=== PATIENT | female | born 1940 | race Caucasian/White ===

== ENCOUNTER → 2024-10-02 | Outpatient (CLI) | payer MEDICARE, MEDICAID, SELFPAY ==
[2024-10-02 13:33] LABS: Basophils % (Auto) 0 % (0-2.5); Eosinophils # (Auto) 0.1 Thou/mm3 (0.0-0.5); Eosinophils % (Auto) 1 % (0-10); Hematocrit 35.5 % (36.0-46.0); Hemoglobin 11.2 g/dL (12.0-16.0); Immature Granulocytes % (Auto) 0 % (0-0); Immature Granulocytes Auto 0.04 Thou/mm3 (0.00-0.00); Lymphocytes # (Auto) 0.9 Thou/mm3 (1.0-4.8); Lymphocytes % (Auto) 9 % (10-50); Mean Corpuscular HGB Conc 31.5 g/dl (31.0-37.0); Mean Corpuscular Hemoglobin 29.6 pg (25.0-35.0); Mean Corpuscular Volume 94 fL (80-100); Monocytes # (Auto) 0.8 Thou/mm3 (0.0-0.8); Monocytes % (Auto) 8 % (0-12); Neutrophils # (Auto) 7.4 Thou/mm3 (1.8-7.7); Neutrophils % (Auto) 81 % (37-80); Nucleated Red Blood Cell % 0 /100 WBC (0); Platelet Count 328 Thou/mm3 (140-440); RDW Standard Deviation 52.8 fL (36.4-46.3); Red Blood Count 3.79 Miln/mm3 (4.00-5.20); White Blood Count 9.1 Thou/mm3 (3.6-11.0)
[2024-10-02 13:46] LABS: Glucose Estimated Average 137 mg/dL (80-131); Hemoglobin A1C 6.4 % Hgb (4.8-6.0)
[2024-10-02 13:50] LABS: Parathyroid Hormone Intact 61.7 pg/ml (18.5-88.0)
[2024-10-02 13:55] LABS: Albumin, Serum 3.8 gm/dL (3.4-4.8); Anion Gap 7 (7-16); BUN/Creatinine Ratio 31 Ratio (12-20); Blood Urea Nitrogen 46 mg/dL (9-23); Calcium 9.4 mg/dL (8.3-10.6); Calcium (Corrected) 9.6 mg/dL (8.5-10.1); Carbon Dioxide 28.9 mMol/L (20.0-31.0); Cardiac Risk Estimate 3.9 RATIO (3.7-5.6); Chloride 104 mMol/L (98-107); Cholesterol 131 mg/dL (132-200); Creatinine (Component) 1.5 mg/dL (0.6-1.3); Free T4 (Free Thyroxine) 0.96 ng/dL (0.89-1.76); Glucose 72 mg/dL (74-106); HDL Cholesterol 34 mg/dL (40-60); LDL Cholesterol,Calculated 76 mg/dL (0-130); Osmolality,Calculated 290 (275-295); Phosphorous 4.4 mg/dL (2.4-5.1); Potassium 4.7 mMol/L (3.4-5.1); Sodium 140 mMol/L (136-145); Thyroid Stimulating Hormone 1.65 uIU/mL (0.55-4.78); Triglycerides 104 mg/dL (30-150); eGFR 34 See Note
[2024-10-02 14:09] LABS: Collection Type, Urine Clean Catch
[2024-10-02 14:22] LABS: Bilirubin,Urine Negative (Negative); Blood,Urine Negative (Negative); Clarity,Urine Clear (Clear/Hazy); Color,Urine Lt-Yellow (Lt Yel-Yel); Glucose, Urine Negative (Negative); Ketones,Urine Negative (Negative); Leukocyte Esterase,Urine Positive (Negative); Nitrite,Urine Negative (Negative); Protein,Urine Trace (Neg - Trace); RBC,Urine 4 /hpf (0-3); Specific Gravity,Urine 1.017 (1.001-1.035); Squamous Epithelial Cell,Urine 7 /hpf (0-5); Urobilinogen,Urine Negative mg/dL (0.0-1.0); WBC,Urine 11 /hpf (0-5)
[2024-10-02 14:24] LABS: Culture Indicated,Urine Yes
== END | disposition home or self-care (01) ==
PROVIDERS: PCP Internal Medicine; Referring Provider Internal Medicine Cardiovascular Disease; Visit Provider Internal Medicine
DX: I12.9 Hypertensive chronic kidney disease with stage 1 through stage 4 chronic kidney disease, or unspecified chronic kidney disease (principal); E11.22 Type 2 diabetes mellitus with diabetic chronic kidney disease; N18.30 Chronic kidney disease, stage 3 unspecified; E78.5 Hyperlipidemia, unspecified; E11.65 Type 2 diabetes mellitus with hyperglycemia; I35.0 Nonrheumatic aortic (valve) stenosis
CPT/HCPCS: 36415; 80061; 80069; 81001; 83036; 83970; 84439; 84443; 85025; 87077; 87086; 87186

== ENCOUNTER → 2024-10-13 | Outpatient (CLI) | payer MEDICARE, MEDICAID, SELFPAY ==
--- NOTE | 2024-10-13 15:21 | XR_ITS ---
Examination: Arterial duplex lower extremity study, unilateral left Date and time of exam: October 13, 2024 1604 hrs. Nonhealing wounds and pain in the left lower leg beginning 7 years ago Findings: Duplex sonographic imaging of the lower extremity arteries using B-mode/Mitchell scale imaging and Doppler spectral analysis and color flow. Left common femoral artery demonstrates triphasic flow. Left superficial femoral artery demonstrates monophasic flow. Left popliteal artery demonstrates monophasic flow. Left posterior tibial artery demonstrated no flow. 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
== END | disposition home or self-care (01) ==
PROVIDERS: PCP Internal Medicine; Referring Provider Internal Medicine; Visit Provider Internal Medicine
DX: I77.89 Other specified disorders of arteries and arterioles (principal); M71.22 Synovial cyst of popliteal space [Baker], left knee
CPT/HCPCS: 93926

== ENCOUNTER → 2024-10-17 | Outpatient (CLI) | payer MEDICARE, MEDICAID, SELFPAY ==
--- NOTE | 2024-10-17 16:00 | XR_ITS ---
Examination: Duplex scan of the lower extremity, unilateral left complete Date and time of exam: October 17, 2024 1557 hrs. Indications: Nonhealing wounds left lower leg 7 months Technique: Duplex scan of the extremity veins using B-mode/grayscale imaging and Doppler spectral analysis and color flow Attention is directed to internal echogenicity, compression and augmentation involving these veins, color flow assessment, spectral analysis Findings: Major deep venous structures in the extremity demonstrate normal course and caliber. No diagnostic visualization left posterior tibial vein There is no evidence of deep vein thrombosis. Normal color flow and spectral analysis Impression: Limited study No DVT demonstrated
== END | disposition home or self-care (01) ==
PROVIDERS: PCP Internal Medicine; Referring Provider Internal Medicine; Visit Provider Internal Medicine
DX: I73.9 Peripheral vascular disease, unspecified (principal)
CPT/HCPCS: 93971

== ENCOUNTER 2024-11-16 10:34 | Emergency (ER) | payer MEDICARE, MEDICAID, SELFPAY ==
[2024-11-16 10:35] VITALS: BP 154/63; PULSE 60; RESP 19; TEMP 36.4; O2SAT 100
[2024-11-16 10:39] VITALS: PULSE 72; RESP 20; O2SAT 95
[2024-11-16 10:46] VITALS: PULSE 65; BMI 34.7
[2024-11-16 11:20] VITALS: BP 135/92; PULSE 67; RESP 18; TEMP 36.5; O2SAT 98
--- NOTE | 2024-11-16 11:44 | PD.EDADULT ---
ED General RME/HPI General Chief complaint: Altered Mental Status Stated complaint: AMS/LOW BLOOD SUGAR Time Seen by Provider: 11/16/24 11:25 Arrival date/time: 11/16/24 10:34 CC: Hypoglycemia HPI patient presents to the ER via EMS who were called by family members who were not able to wake the patient [place]. The patient is a diabetic took insulin at midnight as she typically does. Patient admits that when EMS arrived she was able to be awoken without complications and reported blood sugar at the time was 112. Patient denies fever chills chest pain shortness of breath or difficulty breathing no other complaints. Patient is hard of hearing. Related Data Home Medications ?Medication ?Instructions ?Recorded ?Confirmed multivitamin 1 tab PO QDAY 02/11/18 04/13/24 atorvastatin 40 mg tablet 40 mg PO HS 11/28/19 04/13/24 apixaban 2.5 mg tablet (Eliquis) 2.5 mg PO BID 01/29/22 04/13/24 sitagliptin phosphate 100 mg 100 mg PO QDAY 01/31/22 04/13/24 tablet (Januvia) ferrous sulfate 325 mg (65 mg 325 mg PO QDAY 01/18/23 04/13/24 iron) tablet Preservision Areds See Rx Instructions .Route .COMPLEX 04/13/24 04/13/24 insulin glargine 100 24 unit subcut QAM 04/13/24 04/13/24 unit-lixisenatide 33 mcg/mL subcutaneous pen (Soliqua 100/33) linaclotide 145 mcg capsule 145 mcg PO QDAY 04/13/24 04/13/24 (Linzess) Previous Rx's ?Medication ?Instructions ?Recorded amoxicillin 500 mg-potassium 1 tab PO BID #14 tabs 04/15/24 clavulanate 125 mg tablet (Augmentin) calcitriol 0.25 mcg capsule 0.5 mcg (2 x 0.25 mcg) PO QDAY #1 04/15/24 cap Allergies Allergy/AdvReac Type Severity Reaction Status Date / Time adhesive tape Allergy Blister Verified 04/12/24 14:36 Review of Systems Review of Systems Narrative Review of Systems: GEN: No fever, no chills, no weight loss EYES: No discharge, no visual changes, no pain HEENT: No ear pain, no congestion, no sore throat PULM: No shortness of breath, no cough, no congestion CV: No chest pain, no dyspnea on exertion, no palpitations GI: No nausea, no vomiting, no diarrhea, no pain, no constipation : No frequency, no urgency, no dysuria MUSC/SKEL: No joint pain, no back pain SKIN: No rash PSYCH: No hallucinations, no depression HEME/LYMPH: No easy bleeding or bruising tendencies NEURO: No weakness, no headache Past Medical History Past Medical History NEUROLOGIC: Positive Peripheral Neuropathy; Negative Neurological Disorders or Seizures CARDIAC: Positive Cardiac Disorders, Coronary Artery Disease, Atherosclerotic Heart Disease, Peripheral Vascular Disease, Hypercholesterolemia, Edema, Cellulitis, Deep Vein Thrombosis and Hypertension; Negative Congestive Heart Failure or Varicose Veins RESPIRATORY: Positive Pulmonary Embolism and Pulmonary Edema; Negative Chronic Obstructive Pulmonary Disease (COPD) or Asthma GASTROINTESTINAL: Positive Gastrointestinal Disorders, Gall Bladder Disease and Obesity; Negative Hepatitis GENITOURINARY: Negative Genitourinary Disorders or Renal Disease REPRODUCTIVE: Negative Previous Pregnancies MUSCULOSKELETAL: Positive Musculoskeletal Disorders, Arthritis and Fractures ENT: Positive Cataracts, Macular Degeneration and Deafness; Negative Glaucoma, Retinal Detachment, Ear Infection or Eye Prosthesis ENDOCRINE: Positive Endocrine Disorders and Diabetes Mellitus Type 2; Negative Diabetes Mellitus Type 1 HEMATOLOGIC: Positive Blood Disorders, Anemia and Clotting Problems; Negative Sickle Cell Disease OTHER HISTORY: Positive Hospitalization, Falls, Chicken Pox, Measles, Mumps and Cancer; Negative Autoimmune Disease, Down Syndrome, Developmental Delay, Shingles, Blood Transfusions, Blood Transfusion Reaction, Anesthesia Reactions, Organ Transplant, Chemotherapy, Radiation Therapy, Hyperbaric Therapy or MRSA Family History FAMILY HISTORY: Positive Family Cardiac Disorders, Family Cancer and Family Surgery; Negative Family Psychiatric Problems, Family Respiratory Disorders, Family Gastrointestinal Problems or Family Anesthesia Reaction Surgical History SURGICAL: Positive Angiogram, Ear Surgery, Abdominal Surgery and Hysterectomy; Negative Cardiac Surgery, Endocrine Surgery, Thyroidectomy, Joint Replacement or Organ Transplant Social History SMOKING STATUS: Never smoker SECOND HAND EXPOSURE: No ED Exam Narrative Physical exam: [General: Obese not in any acute distress Head normocephalic HEENT: Within acceptable limits Neck is supple nontender Chest equal chest rise nontender to palpation Respiratory: Clear to auscultation no wheezes crackles or rubs CV: Rate rhythm is regular no murmurs rubs or clicks Abdomen is distended secondary to body habitus soft nontender no masses positive bowel sounds all 4 quadrants Back: No CVA tenderness no spinous process tenderness from cervical spine thoracic and lumbar spine Skin: Intact no petechiae rash induration ulceration or crepitus Extremities: Moving all extremity against resistance cap refill less than 2 seconds neurosensory intact Neuro: Awake alert oriented x3 Glascow coma 15 no focal deficits] Course Quality Measures none Orders Category Date Time Status Glucose [Bedside Blood Glucose] Q1HR Care 11/16/24 11:46 Active Miscellaneous Nursing Order NOW Care 11/16/24 11:46 Active CBC Stat Lab 11/16/24 11:00 Completed CMP [Comprehensive Metabolic Panel] Stat Lab 11/16/24 12:29 Completed Urinalysis Stat Lab 11/16/24 11:24 Completed Vital Signs Vital signs: Vital Signs Temperature 97.5 F 11/16/24 10:35 Pulse Rate 60 11/16/24 10:35 Respiratory Rate 19 11/16/24 10:35 Blood Pressure 154/63 H 11/16/24 10:35 Pulse Oximetry (%) 100 11/16/24 10:35 Oxygen Delivery Method Nasal Cannula 11/16/24 10:35 Oxygen Flow Rate 6 11/16/24 10:35 MDM Patient data External records reviewed:: [facility] previous records and EMS form Clinical information provided by:: patient and EMS Social determinants that could affect healthcare access:: none Patient has the following chronic illnesses:: Diabetes, DVT, CKD stage IIIb, hypertension, hyperlipidemia, chronic venous stasis ulcer. How is presenting disease/condition affected by chronic disease/condition?: exacerbated by Evaluation data The following diagnostics were reviewed and interpreted by me:: lab results Lab and/or radiology exams considered but not ordered:: CBC shows no acute leukocytosis anemia thrombocytopenia CMP shows no acute electrolyte imbalances renal impairment transaminitis or T. bili ovation Urine is negative. Interpretation Summary: Hypoglycemic episode seems to have resolved, at this time comfortable discharging the patient home she has been awake alert and oriented throughout her visit the emergency room there is been no deterioration in neurologic status. Medications Medications considered but not ordered:: None Medication administrations:: None Consultations Consultation(s) initiated? (list below): No Diagnosis Differential Diagnosis ED Complaint MDM: Hypoglycemia electrolyte imbalances UTI Most likely diagnosis given after review of the tests above:: Hypoglycemia Admission Indicated Admission indicated?: not indicated Explain why admission is indicated or not indicated:: Stable for outpatient follow-up Admission Request Was there a request for admission?: No Disposition Plan Disposition Plan: Discharge Discharge Attestation Discharge Attestation: The patient and all family members were given an opportunity to ask questions and understood the discharge instructions. Discharge instructions specifically effects, indications for sooner follow up or return to the emergency department, and the expected course of current diagnosis. Patient condition: Stable Medical Decision Making Differential Diagnosis Differential Diagnosis: Hypoglycemia electrolyte imbalances UTI Lab Data 11/16/24 11:00 11/16/24 12:29 Labs: Lab Results 11/16/24 11/16/24 11/16/24 Range/Units 11:00 11:24 12:29 WBC 9.4 (3.6-11.0) Thou/mm3 RBC 3.94 L (4.00-5.20) Miln/mm3 Hgb 11.1 L (12.0-16.0) g/dL Hct 35.5 L (36.0-46.0) % MCV 90 (80-100) fL MCH 28.2 (25.0-35.0) pg MCHC 31.3 (31.0-37.0) g/dl RDW Std Deviation 52.6 H (36.4-46.3) fL Plt Count 240 (140-440) Thou/mm3 Neut % (Auto) 87 H (37-80) % Lymph % (Auto) 6 L (10-50) % [place] % (Auto) 6 (0-12) % Eos % (Auto) 1 (0-10) % Baso % (Auto) 1 (0-2.5) % Neut # (Auto) 8.1 H (1.8-7.7) Thou/mm3 Lymph # (Auto) 0.5 L (1.0-4.8) Thou/mm3 [place] # (Auto) 0.6 (0.0-0.8) Thou/mm3 Eos # (Auto) 0.1 (0.0-0.5) Thou/mm3 Baso # (Auto) 0.1 (0.0-0.2) Thou/mm3 Immature Gran # (Auto) 0.03 H (0.00-0.00) Thou/mm3 Absolute Nucleated RBC 0.00 (0.00-0.00) Thou/mm3 Immature Gran % 0 (0-0) % Nucleated RBC % 0 (0) /100 WBC Sodium 137 (136-145) mMol/L Potassium 4.0 (3.4-5.1) mMol/L Chloride 100 (98-107) mMol/L Carbon Dioxide 31.0 (20.0-31.0) mMol/L Anion Gap 6 L (7-16) BUN 39 H (9-23) mg/dL Creatinine 1.3 (0.6-1.3) mg/dL Estim Creat Clear Calc 31.6 L (>60) mL/min eGFR 40 L (60 - ) See Note BUN/Creatinine Ratio 30 H (12-20) Ratio Glucose 97 (74-106) mg/dL Calculated Osmolality 283 (275-295) Calcium 9.5 (8.3-10.6) mg/dL Corrected Calcium 9.7 (8.5-10.1) mg/dL Total Bilirubin 0.5 (0.3-1.2) mg/dL AST 33 (0-34) U/L ALT 23 (10-49) U/L Alkaline Phosphatase 174 H (46-116) U/L Total Protein 7.6 (5.7-8.2) gm/dL Albumin 3.8 (3.4-4.8) gm/dL Globulin 3.8 H (2.3-3.5) gm/dL Albumin/Globulin Ratio 1.0 L (1.2-2.2) Ur Collection Type Clean Catch Urine Color Lt-Yellow (Lt Yel-Yel) Urine Clarity Clear (Clear/Hazy) Urine pH 6.5 (5.0-7.0) Ur Specific [place] 1.007 (1.001-1.035) Urine Protein Negative (Neg - Trace) Urine Glucose (UA) Negative (Negative) Urine Ketones Negative (Negative) Urine Blood Negative (Negative) Urine Nitrite Negative (Negative) Urine Bilirubin Negative (Negative) Urine Urobilinogen (Auto) Negative (0.0-1.0) mg/dL Ur Leukocyte Esterase Negative (Negative) Urine RBC 0 (0-3) /hpf Urine WBC 0 (0-5) /hpf Ur Squamous Epith Cells 0 (0-5) /hpf Urine Bacteria None (None) Discharge Plan Plan Patient Disposition: HOME (Self Care) Patient condition on transfer: Stable Prescriptions/Referrals Prescriptions/Med Rec: No Action ferrous sulfate 325 mg (65 mg iron) tablet 325 mg PO QDAY Eliquis 2.5 mg tablet 2.5 mg PO BID Januvia 100 mg tablet 100 mg PO QDAY multivitamin Tablet 1 tab PO QDAY atorvastatin 40 mg Tablet 40 mg PO HS Soliqua 100/33 100 unit-33 mcg/mL Insulin Pen 24 unit SUBCUT QAM Linzess 145 mcg Capsule 145 mcg PO QDAY Preservision Areds tablet See Rx Instructions .ROUTE .COMPLEX Rx Instructions: 7160 [id number] unit tablet, Take 1 tablet by mouth daily calcitriol 0.25 mcg Capsule 0.5 mcg PO QDAY Qty: 1 0RF amoxicillin-pot clavulanate [Augmentin] 500-125 mg tablet 1 tab PO BID Qty: 14 0RF Referrals: Samira Rojas MD [Primary Care Provider] - In 1 week Problem List Clinical Impression: Hypoglycemia Patient/Caregiver Discharge Instructions Education Materials: Hypoglycemia (Low Blood Sugar) Additional Instructions: Monitor your blood sugars closely, if you are giving insulin at midnight make sure you take some food after you take the insulin. 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
[2024-11-16 12:21] LABS: Basophils # (Auto) 0.1 Thou/mm3 (0.0-0.2); Basophils % (Auto) 1 % (0-2.5); Eosinophils # (Auto) 0.1 Thou/mm3 (0.0-0.5); Eosinophils % (Auto) 1 % (0-10); Hematocrit 35.5 % (36.0-46.0); Hemoglobin 11.1 g/dL (12.0-16.0); Immature Granulocytes % (Auto) 0 % (0-0); Immature Granulocytes Auto 0.03 Thou/mm3 (0.00-0.00); Lymphocytes # (Auto) 0.5 Thou/mm3 (1.0-4.8); Lymphocytes % (Auto) 6 % (10-50); Mean Corpuscular HGB Conc 31.3 g/dl (31.0-37.0); Mean Corpuscular Hemoglobin 28.2 pg (25.0-35.0); Mean Corpuscular Volume 90 fL (80-100); Monocytes # (Auto) 0.6 Thou/mm3 (0.0-0.8); Monocytes % (Auto) 6 % (0-12); Neutrophils # (Auto) 8.1 Thou/mm3 (1.8-7.7); Neutrophils % (Auto) 87 % (37-80); Nucleated Red Blood Cell % 0 /100 WBC (0); Platelet Count 240 Thou/mm3 (140-440); RDW Standard Deviation 52.6 fL (36.4-46.3); Red Blood Count 3.94 Miln/mm3 (4.00-5.20); White Blood Count 9.4 Thou/mm3 (3.6-11.0)
[2024-11-16 12:33] LABS: Collection Type, Urine Clean Catch; RBC,Urine 0 /hpf (0-3); Squamous Epithelial Cell,Urine 0 /hpf (0-5); WBC,Urine 0 /hpf (0-5)
[2024-11-16 12:54] VITALS: BP 149/89; PULSE 59; RESP 18; TEMP 36.5; O2SAT 97
[2024-11-16 12:55] LABS: Alanine Aminotransferase 23 U/L (10-49); Albumin, Serum 3.8 gm/dL (3.4-4.8); Alkaline Phosphatase 174 U/L (46-116); Anion Gap 6 (7-16); Aspartate Amino Transferase 33 U/L (0-34); BUN/Creatinine Ratio 30 Ratio (12-20); Bilirubin,Total 0.5 mg/dL (0.3-1.2); Blood Urea Nitrogen 39 mg/dL (9-23); Calcium 9.5 mg/dL (8.3-10.6); Calcium (Corrected) 9.7 mg/dL (8.5-10.1); Chloride 100 mMol/L (98-107); Creatinine (Component) 1.3 mg/dL (0.6-1.3); Estimated Creatinine Clearance 31.6 mL/min (>60); Globulin 3.8 gm/dL (2.3-3.5); Glucose 97 mg/dL (74-106); Osmolality,Calculated 283 (275-295); Sodium 137 mMol/L (136-145); Total Protein 7.6 gm/dL (5.7-8.2); eGFR 40 See Note
[2024-11-16 12:56] LABS: Bilirubin,Urine Negative (Negative); Blood,Urine Negative (Negative); Clarity,Urine Clear (Clear/Hazy); Glucose, Urine Negative (Negative); Ketones,Urine Negative (Negative); Leukocyte Esterase,Urine Negative (Negative); Nitrite,Urine Negative (Negative); PH,Urine 6.5 (5.0-7.0); Protein,Urine Negative (Neg - Trace); Specific Gravity,Urine 1.007 (1.001-1.035); Urobilinogen,Urine Negative mg/dL (0.0-1.0)
[2024-11-16 13:09] LABS: Color,Urine Lt-Yellow (Lt Yel-Yel)
--- NOTE | 2024-11-16 13:52 | PC.NURSE ---
PT GIVEN TURKEY SANDWICH & CRANBERRY JUICE, PER PROVIDER'S ORDER. PT ATE 100% OF TURKEY SANDWICH AND DRANK ALL OF APPLE JUICE.
[2024-11-16 14:33] VITALS: BP 141/52; PULSE 94; RESP 19; TEMP 36.8; O2SAT 99
== END 2024-11-16 14:58 | disposition home or self-care (01) ==
PROVIDERS: Registered Nurse General Practice; Emergency Provider Emergency Medicine; PCP Internal Medicine
DX: E11.649 Type 2 diabetes mellitus with hypoglycemia without coma (principal)
CPT/HCPCS: 51701; 36415; 80053; 81001; 85025; 99283

== ENCOUNTER → 2024-12-10 | Outpatient (CLI) | payer MEDICARE, MEDICAID, SELFPAY | END | disposition home or self-care (01) | LOC: SWHD 13:44 | PROVIDERS: Visit Provider Student in an Organized Health Care Education/Training Program | DX: I87.312 Chronic venous hypertension (idiopathic) with ulcer of left lower extremity (principal); L97.822 Non-pressure chronic ulcer of other part of left lower leg with fat layer exposed; D64.9 Anemia, unspecified; E11.40 Type 2 diabetes mellitus with diabetic neuropathy, unspecified; Z79.4 Long term (current) use of insulin; Z79.84 Long term (current) use of oral hypoglycemic drugs; I82.409 Acute embolism and thrombosis of unspecified deep veins of unspecified lower extremity | CPT/HCPCS: 97597; 97598 ×32; A9270 ==

== ENCOUNTER → 2025-01-01 | Outpatient (CLI) | payer MEDICARE, MEDICAID, SELFPAY ==
[2025-01-01 14:41] LABS: Blood Urea Nitrogen 38 mg/dL (9-23); Creatinine (Component) 1.6 mg/dL (0.6-1.3); eGFR 31 See Note
== END | disposition home or self-care (01) ==
LOC: COPL 13:24
PROVIDERS: PCP Internal Medicine; Referring Provider Surgery Vascular Surgery; Visit Provider Surgery Vascular Surgery
DX: I87.332 Chronic venous hypertension (idiopathic) with ulcer and inflammation of left lower extremity (principal)
CPT/HCPCS: 36415; 82565; 84520

== ENCOUNTER → 2025-01-06 | Outpatient (CLI) | payer MEDICARE, SELFPAY | END | disposition home or self-care (01) | LOC: SWHD 13:47 | PROVIDERS: PCP Internal Medicine; Referring Provider Internal Medicine; Visit Provider Surgery | DX: I87.312 Chronic venous hypertension (idiopathic) with ulcer of left lower extremity (principal); L97.822 Non-pressure chronic ulcer of other part of left lower leg with fat layer exposed; D64.9 Anemia, unspecified; E11.40 Type 2 diabetes mellitus with diabetic neuropathy, unspecified; Z79.4 Long term (current) use of insulin; Z79.84 Long term (current) use of oral hypoglycemic drugs; I82.409 Acute embolism and thrombosis of unspecified deep veins of unspecified lower extremity | CPT/HCPCS: 11042; 11045; A9270 ==

== ENCOUNTER → 2025-01-08 | Outpatient (CLI) | payer MEDICARE, MEDICAID, SELFPAY ==
--- NOTE | 2025-01-08 15:00 | XR_ITS ---
Examination: CTA abdominal aorta iliofemoral runoff. 2-D sagittal coronal reconstructions. 3-D reconstructions, vascular Exam date and time: January 08, 2025 at 1551 hrs. Indications: Nonhealing left leg ulcer 7 years Technique: Multiple CTA images of the abdominal aorta iliofemoral runoff arterial vessels, 2.0 mm slice thickness, post intravenous administration 80 cc [id number] 2-D sagittal coronal reconstructions. 3-D reconstructions, vascular 3-D postprocessing, including vascular maximum intensity projection images, 3-D volume rendering Low dose protocols were performed. One or more of the following dose reduction techniques were used; automated exposure control, adjustment of the mA and/or KV according to patient size, use of iterative reconstruction technique. Findings: No focal liver or splenic lesion Absent gallbladder No pancreatic mass Bilateral renal cortical thinning. No bowel obstruction Intact urinary bladder Abdominal aortic calcification no aneurysmal dilatation 50% stenosis origin celiac axis Transverse dimension distal abdominal aorta 28 mm No critical stenoses common iliac and external iliac or common femoral arteries Heavy calcification right superficial femoral artery left popliteal artery Occlusion proximal right anterior tibial artery, very heavy calcification trifurcation vessels Occlusions proximal right posterior tibial artery Heavy calcification left superficial femoral artery Poor opacification of the left popliteal artery Severe calcification of the left trifurcation arteries, posterior tibial and anterior tibial and main continuation trunk are not opacified in the mid and distal portion Extensive soft tissue calcification left lower extremity Impression: 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
== END | disposition home or self-care (01) ==
PROVIDERS: PCP Surgery Vascular Surgery; Referring Provider Surgery Vascular Surgery; Visit Provider Surgery Vascular Surgery
DX: I87.332 Chronic venous hypertension (idiopathic) with ulcer and inflammation of left lower extremity (principal); I70.242 Atherosclerosis of native arteries of left leg with ulceration of calf
CPT/HCPCS: 75635; A4649; Q9967

== ENCOUNTER → 2025-02-03 | Outpatient (CLI) | payer MEDICARE, SELFPAY | END | disposition home or self-care (01) | LOC: SWHD 13:44 | PROVIDERS: PCP Internal Medicine; Referring Provider Internal Medicine; Visit Provider Student in an Organized Health Care Education/Training Program | DX: I87.312 Chronic venous hypertension (idiopathic) with ulcer of left lower extremity (principal); L97.822 Non-pressure chronic ulcer of other part of left lower leg with fat layer exposed; D64.9 Anemia, unspecified; E11.40 Type 2 diabetes mellitus with diabetic neuropathy, unspecified; Z79.4 Long term (current) use of insulin; Z79.84 Long term (current) use of oral hypoglycemic drugs; I82.409 Acute embolism and thrombosis of unspecified deep veins of unspecified lower extremity | CPT/HCPCS: 11042; 11045 ×3; A9270 ==

== ENCOUNTER → 2025-02-12 | Outpatient (CLI) | payer MEDICARE, MEDICAID, SELFPAY ==
[2025-02-12 13:13] LABS: Collection Type, Urine Clean Catch
[2025-02-12 13:30] LABS: Basophils % (Auto) 1 % (0-2.5); Eosinophils # (Auto) 0.2 Thou/mm3 (0.0-0.5); Eosinophils % (Auto) 2 % (0-10); Hematocrit 31.6 % (36.0-46.0); Hemoglobin 9.9 g/dL (12.0-16.0); Immature Granulocytes % (Auto) 0 % (0-0); Immature Granulocytes Auto 0.02 Thou/mm3 (0.00-0.00); Lymphocytes # (Auto) 1.3 Thou/mm3 (1.0-4.8); Lymphocytes % (Auto) 15 % (10-50); Mean Corpuscular HGB Conc 31.3 g/dl (31.0-37.0); Mean Corpuscular Hemoglobin 28.8 pg (25.0-35.0); Mean Corpuscular Volume 92 fL (80-100); Monocytes # (Auto) 0.5 Thou/mm3 (0.0-0.8); Monocytes % (Auto) 6 % (0-12); Neutrophils # (Auto) 6.6 Thou/mm3 (1.8-7.7); Neutrophils % (Auto) 76 % (37-80); Nucleated Red Blood Cell % 0 /100 WBC (0); Platelet Count 283 Thou/mm3 (140-440); RDW Standard Deviation 53.1 fL (36.4-46.3); Red Blood Count 3.44 Miln/mm3 (4.00-5.20); White Blood Count 8.7 Thou/mm3 (3.6-11.0)
[2025-02-12 13:37] LABS: Glucose Estimated Average 160 mg/dL (80-131); Hemoglobin A1C 7.2 % Hgb (4.8-6.0)
[2025-02-12 13:44] LABS: Parathyroid Hormone Intact 47.4 pg/ml (18.5-88.0)
[2025-02-12 13:52] LABS: Alanine Aminotransferase 14 U/L (10-49); Albumin, Serum 3.9 gm/dL (3.4-4.8); Alkaline Phosphatase 143 U/L (46-116); Anion Gap 9 (7-16); Aspartate Amino Transferase 26 U/L (0-34); BUN/Creatinine Ratio 31 Ratio (12-20); Bilirubin,Total 0.4 mg/dL (0.3-1.2); Blood Urea Nitrogen 49 mg/dL (9-23); Calcium 9.4 mg/dL (8.3-10.6); Calcium (Corrected) 9.5 mg/dL (8.5-10.1); Carbon Dioxide 26.5 mMol/L (20.0-31.0); Cardiac Risk Estimate 3.6 RATIO (3.7-5.6); Chloride 107 mMol/L (98-107); Cholesterol 137 mg/dL (132-200); Creatinine (Component) 1.6 mg/dL (0.6-1.3); Globulin 3.8 gm/dL (2.3-3.5); Glucose 169 mg/dL (74-106); HDL Cholesterol 38 mg/dL (40-60); LDL Cholesterol,Calculated 77 mg/dL (0-130); Osmolality,Calculated 300 (275-295); Potassium 4.1 mMol/L (3.4-5.1); Sodium 142 mMol/L (136-145); Thyroid Stimulating Hormone 1.54 uIU/mL (0.55-4.78); Total Protein 7.7 gm/dL (5.7-8.2); Triglycerides 111 mg/dL (30-150); eGFR 31 See Note
[2025-02-12 14:01] LABS: Bacteria,Urine Rare; Bilirubin,Urine Negative (Negative); Blood,Urine Negative (Negative); Clarity,Urine Clear (Clear/Hazy); Color,Urine Lt-Yellow (Lt Yel-Yel); Creatinine MALB Rnd Ur 64 mg/dL (30-125); Culture Indicated,Urine Not Indicated; Glucose, Urine Negative (Negative); Ketones,Urine Negative (Negative); Leukocyte Esterase,Urine Positive (Negative); Microalbumin Creat Ratio 45 mg/gCrea (<30); Microalbumin, Random Urine 29 mg/L (0-300); Nitrite,Urine Negative (Negative); PH,Urine 5.5 (5.0-7.0); Protein,Urine Negative (Neg - Trace); RBC,Urine 11 /hpf (0-3); Specific Gravity,Urine 1.013 (1.001-1.035); Squamous Epithelial Cell,Urine 1 /hpf (0-5); Urobilinogen,Urine Negative mg/dL (0.0-1.0); WBC,Urine 9 /hpf (0-5)
== END | disposition home or self-care (01) ==
LOC: COPL 12:36
PROVIDERS: PCP Internal Medicine; Referring Provider Internal Medicine; Visit Provider Internal Medicine
DX: I12.9 Hypertensive chronic kidney disease with stage 1 through stage 4 chronic kidney disease, or unspecified chronic kidney disease (principal); E11.22 Type 2 diabetes mellitus with diabetic chronic kidney disease; N18.30 Chronic kidney disease, stage 3 unspecified
CPT/HCPCS: 36415; 80053; 80061; 81001; 82043; 82570; 83036; 83970; 84443; 85025

== ENCOUNTER → 2025-03-03 | Outpatient (CLI) | payer MEDICARE, SELFPAY | END | disposition home or self-care (01) | PROVIDERS: PCP Internal Medicine; Referring Provider Internal Medicine; Visit Provider Student in an Organized Health Care Education/Training Program | DX: L97.822 Non-pressure chronic ulcer of other part of left lower leg with fat layer exposed (principal); D64.9 Anemia, unspecified; E11.40 Type 2 diabetes mellitus with diabetic neuropathy, unspecified; Z79.4 Long term (current) use of insulin; Z79.84 Long term (current) use of oral hypoglycemic drugs; I82.409 Acute embolism and thrombosis of unspecified deep veins of unspecified lower extremity | CPT/HCPCS: 11042; A9270 ==

== ENCOUNTER → 2025-04-02 | Outpatient (CLI) | payer MEDICARE, MEDICAID, SELFPAY ==
--- NOTE | 2025-04-02 13:27 | EKG_ITS ---
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
[2025-04-02 13:50] LABS: Basophils % (Auto) 1 % (0-2.5); Eosinophils # (Auto) 0.2 Thou/mm3 (0.0-0.5); Eosinophils % (Auto) 3 % (0-10); Hematocrit 29.3 % (36.0-46.0); Hemoglobin 9.2 g/dL (12.0-16.0); Immature Granulocytes % (Auto) 0 % (0-0); Immature Granulocytes Auto 0.02 Thou/mm3 (0.00-0.00); Lymphocytes # (Auto) 1.2 Thou/mm3 (1.0-4.8); Lymphocytes % (Auto) 17 % (10-50); Mean Corpuscular HGB Conc 31.4 g/dl (31.0-37.0); Mean Corpuscular Hemoglobin 29.6 pg (25.0-35.0); Mean Corpuscular Volume 94 fL (80-100); Monocytes # (Auto) 0.7 Thou/mm3 (0.0-0.8); Monocytes % (Auto) 10 % (0-12); Neutrophils % (Auto) 70 % (37-80); Nucleated Red Blood Cell % 0 /100 WBC (0); Platelet Count 241 Thou/mm3 (140-440); RDW Standard Deviation 50.3 fL (36.4-46.3); Red Blood Count 3.11 Miln/mm3 (4.00-5.20); White Blood Count 7.1 Thou/mm3 (3.6-11.0)
[2025-04-02 14:05] LABS: Alanine Aminotransferase 19 U/L (10-49); Albumin, Serum 3.7 gm/dL (3.4-4.8); Albumin/Globulin Ratio 1.1 (1.2-2.2); Alkaline Phosphatase 150 U/L (46-116); Anion Gap 11 (7-16); Aspartate Amino Transferase 32 U/L (0-34); BUN/Creatinine Ratio 35 Ratio (12-20); Bilirubin,Total 0.4 mg/dL (0.3-1.2); Blood Urea Nitrogen 53 mg/dL (9-23); Calcium 9.1 mg/dL (8.3-10.6); Calcium (Corrected) 9.3 mg/dL (8.5-10.1); Carbon Dioxide 29.6 mMol/L (20.0-31.0); Chloride 100 mMol/L (98-107); Creatinine (Component) 1.5 mg/dL (0.6-1.3); Globulin 3.3 gm/dL (2.3-3.5); Glucose 104 mg/dL (74-106); Osmolality,Calculated 295 (275-295); Potassium 4.3 mMol/L (3.4-5.1); Sodium 141 mMol/L (136-145); eGFR 34 See Note
[2025-04-02 14:06] LABS: INR 1.1 (0.9-1.3); Partial Thromboplastin Time 32.5 Seconds (22.0-36.0); Prothrombin Time 11.6 Seconds (9.0-12.2)
== END | disposition home or self-care (01) ==
PROVIDERS: PCP Internal Medicine; Referring Provider Surgery Vascular Surgery; Visit Provider Surgery Vascular Surgery
DX: Z01.818 Encounter for other preprocedural examination (principal); I73.9 Peripheral vascular disease, unspecified; Z79.01 Long term (current) use of anticoagulants
CPT/HCPCS: 36415; 80053; 85025; 85610; 85730; 93005

== ENCOUNTER → 2025-04-02 | Outpatient (CLI) | payer MEDICARE, SELFPAY | END | disposition home or self-care (01) | PROVIDERS: PCP Internal Medicine; Referring Provider Internal Medicine; Visit Provider Student in an Organized Health Care Education/Training Program | DX: I87.312 Chronic venous hypertension (idiopathic) with ulcer of left lower extremity (principal); L97.822 Non-pressure chronic ulcer of other part of left lower leg with fat layer exposed; D64.9 Anemia, unspecified; E11.40 Type 2 diabetes mellitus with diabetic neuropathy, unspecified; Z79.4 Long term (current) use of insulin; Z79.84 Long term (current) use of oral hypoglycemic drugs; I82.409 Acute embolism and thrombosis of unspecified deep veins of unspecified lower extremity | CPT/HCPCS: 11042; 11045; 36415; 80053; 85025; 85610; 85730; 93005; A9270 ==

== ENCOUNTER 2025-04-16 21:23 | Emergency (ER) | payer MEDICARE, MEDICAID, SELFPAY ==
--- NOTE | 2025-04-16 21:35 | XR_ITS ---
Examination: CT cervical spine without contrast 2-D sagittal reconstructions 2-D coronal reconstructions 3-D reconstructions. Exam date and time:April 17, 2025 0458 hours INDICATIONS: Injury to the head today, head pain neck pain CTDI:vol (mGy) 8.9 DLP: (mGycm) 189 Technique: Multiple 2 mm axial sections of the cervical spine have been obtained. The coronal and sagittal reconstructions have been obtained. 3-D reconstructions have been obtained. Low dose protocols were performed. One or more of the following dose reduction techniques were used; automated exposure control, adjustment of the mA and/or KV according to patient size, use of iterative reconstruction technique. Findings: Axial sections demonstrate intact base of the skull. C1 exhibit satisfactory relationship to the odontoid. No acute cervical vertebral body fracture seen. Alignment posterior spinous processes satisfactory. Impression: No acute cervical fracture.
--- NOTE | 2025-04-16 21:35 | EKG_ITS ---
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
--- NOTE | 2025-04-16 21:35 | XR_ITS ---
Examination: AP chest single view TECHNIQUE: AP portable semiupright chest single view Date and time: April 16, 2025 10:34 PM Comparison April 12, 2024 INDICATIONS: Patient fell today with injury to the chest, chest pain FINDINGS: Normal heart size Ectatic and enlarged thoracic aorta. No pneumothorax Prominent osteopenia Clavicles ribs appear intact IMPRESSION: No pneumothorax pulmonary contusion or hemothorax
--- NOTE | 2025-04-16 21:35 | XR_ITS ---
Examination: CT brain head without contrast. 2-D sagittal coronal reconstructions Date and time of exam:April 17, 2025 at 0458 hours INDICATIONS: Injury to the head today, head pain CTDI: vol (mGy):8 DLP: (mGycm):185 Technique: Multiple CT axial sections of the brain have been obtained, 5 mm slice thickness. Contrast has not been administered. 2-D sagittal, coronal reconstructions have been obtained Low dose protocols were performed. One or more of the following dose reduction techniques were used; automated exposure control, adjustment of the mA and/or KV according to patient size, use of iterative reconstruction technique. Findings: No significant ventricular enlargement. Intra-axial or extra-axial hemorrhage density is not seen. No mass effect or midline shift Basal cisterns are not remarkable. Fourth ventricle is midline. Cranial vault intact. Impression: Negative for acute hemorrhage, mass effect or midline shift
[2025-04-16 21:50] VITALS: PULSE 71; O2SAT 97; BMI 36.1
[2025-04-16 21:59] VITALS: BP 142/64; PULSE 61; RESP 16; TEMP 36.6; O2SAT 100
[2025-04-16 22:18] LABS: Basophils # (Auto) 0.1 Thou/mm3 (0.0-0.2); Basophils % (Auto) 1 % (0-2.5); Eosinophils # (Auto) 0.3 Thou/mm3 (0.0-0.5); Eosinophils % (Auto) 3 % (0-10); Hemoglobin 9.7 g/dL (12.0-16.0); Immature Granulocytes % (Auto) 1 % (0-0); Immature Granulocytes Auto 0.06 Thou/mm3 (0.00-0.00); Lymphocytes # (Auto) 0.9 Thou/mm3 (1.0-4.8); Lymphocytes % (Auto) 12 % (10-50); Mean Corpuscular HGB Conc 33.4 g/dl (31.0-37.0); Mean Corpuscular Hemoglobin 30.5 pg (25.0-35.0); Mean Corpuscular Volume 91 fL (80-100); Monocytes # (Auto) 0.8 Thou/mm3 (0.0-0.8); Monocytes % (Auto) 10 % (0-12); Neutrophils # (Auto) 5.7 Thou/mm3 (1.8-7.7); Neutrophils % (Auto) 73 % (37-80); Nucleated Red Blood Cell % 0 /100 WBC (0); Platelet Count 278 Thou/mm3 (140-440); Red Blood Count 3.18 Miln/mm3 (4.00-5.20); White Blood Count 7.8 Thou/mm3 (3.6-11.0)
[2025-04-16 22:34] LABS: INR 1.2 (0.9-1.3); Prothrombin Time 12.6 Seconds (9.0-12.2)
[2025-04-16 22:42] LABS: Alanine Aminotransferase 26 U/L (10-49); Albumin, Serum 3.4 gm/dL (3.4-4.8); Albumin/Globulin Ratio 1.1 (1.2-2.2); Alkaline Phosphatase 157 U/L (46-116); Anion Gap 10 (7-16); Aspartate Amino Transferase 50 U/L (0-34); BUN/Creatinine Ratio 36 Ratio (12-20); Bilirubin,Total 0.3 mg/dL (0.3-1.2); Blood Urea Nitrogen 65 mg/dL (9-23); Calcium 8.9 mg/dL (8.3-10.6); Calcium (Corrected) 9.4 mg/dL (8.5-10.1); Carbon Dioxide 27.5 mMol/L (20.0-31.0); Chloride 95 mMol/L (98-107); Creatine Kinase 115 U/L (34-171); Creatinine (Component) 1.8 mg/dL (0.6-1.3); Globulin 3.2 gm/dL (2.3-3.5); Glucose 164 mg/dL (74-106); Osmolality,Calculated 287 (275-295); Potassium 4.5 mMol/L (3.4-5.1); Sodium 132 mMol/L (136-145); Total Protein 6.6 gm/dL (5.7-8.2); Troponin I < 0.020 ng/mL (0.0-0.045); eGFR 27 See Note
[2025-04-16 23:17] VITALS: BP 152/62; PULSE 59; RESP 16; TEMP 36.6; O2SAT 100
--- NOTE | 2025-04-16 23:32 | PD.EDFALL ---
ED Fall Injury RME/HPI General Chief Complaint: Fall Stated Complaint: FALL AND LOW BP Time Seen by Provider: 04/16/25 21:35 Arrival date/time: 04/16/25 21:23 RME / HPI RME / HPI Narrative: DR. 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 Patient was sitting on her walker chair while taking a pitcher of tea out of the refrigerator. Walker chair began to move back while she held the heavy pitcher and was unable to stop. She fell on her bottom with her legs under the refrigerator. Patient reports feeling weak after getting up. She used to her Life Alert and was then picked up off the floor by EMS. Patient has been living with a caregiver for 2 days s/p hospitalization. Patient was hospitalized for 8 days due to a clot in her leg and an air bubble in her lung following administration of anesthesia for an angiogram of her leg. Denies chest pain. No other concerns or complaints expressed at this time. Related Data Home Medications ?Medication ?Instructions ?Recorded ?Confirmed multivitamin 1 tab PO QDAY 02/11/18 04/13/24 atorvastatin 40 mg tablet 40 mg PO HS 11/28/19 04/13/24 apixaban 2.5 mg tablet (Eliquis) 2.5 mg PO BID 01/29/22 04/13/24 sitagliptin phosphate 100 mg 100 mg PO QDAY 01/31/22 04/13/24 tablet (Januvia) ferrous sulfate 325 mg (65 mg 325 mg PO QDAY 01/18/23 04/13/24 iron) tablet Preservision Areds See Rx Instructions .Route .COMPLEX 04/13/24 04/13/24 insulin glargine 100 24 unit subcut QAM 04/13/24 04/13/24 unit-lixisenatide 33 mcg/mL subcutaneous pen (Soliqua 100/33) linaclotide 145 mcg capsule 145 mcg PO QDAY 04/13/24 04/13/24 (Linzess) Previous Rx's ?Medication ?Instructions ?Recorded amoxicillin 500 mg-potassium 1 tab PO BID #14 tabs 04/15/24 clavulanate 125 mg tablet (Augmentin) calcitriol 0.25 mcg capsule 0.5 mcg (2 x 0.25 mcg) PO QDAY #1 04/15/24 cap Allergies Allergy/AdvReac Type Severity Reaction Status Date / Time adhesive tape Allergy Blister Verified 04/12/24 14:36 Review of Systems Review of Systems Systems Reviewed: All systems reviewed, normal except as documented Past Medical History Past Medical History NEUROLOGIC: Positive Peripheral Neuropathy CARDIAC: Positive Cardiac Disorders, Atherosclerotic Heart Disease, Peripheral Vascular Disease, Hypercholesterolemia, Edema, Cellulitis, Deep Vein Thrombosis and Hypertension RESPIRATORY: Positive Pulmonary Embolism and Pulmonary Edema GASTROINTESTINAL: Positive Gastrointestinal Disorders, Gall Bladder Disease and Obesity MUSCULOSKELETAL: Positive Musculoskeletal Disorders, Arthritis and Fractures ENT: Positive Cataracts, Macular Degeneration and Deafness ENDOCRINE: Positive Endocrine Disorders and Diabetes Mellitus Type 2 HEMATOLOGIC: Positive Blood Disorders, Anemia and Clotting Problems OTHER HISTORY: Positive Hospitalization, Falls, Chicken Pox, Measles, Mumps and Cancer Family History FAMILY HISTORY: Positive Family Cardiac Disorders, Family Cancer and Family Surgery Surgical History SURGICAL: Positive Angiogram, Ear Surgery, Abdominal Surgery and Hysterectomy ED Exam Narrative Physical exam: GEN. APPEARANCE: The patient is alert awake oriented X-3 in no distress, lying down comfortably, does not look ill/toxic. Patient has good eye contact. Patient is cooperative. VITALS: All vitals were reviewed and the pulse ox is 99% on room air which is normal according to my interpretation. HEENT: Normocephalic, atraumatic. Pupils are equal and reactive. Oral mucosa is moist. Patent Nares NECK: Supple, nontender, no thyromegaly, no meningismus, no JVD CHEST: Symmetrical, atraumatic, and with equal expansion , Nontender on palpation no deformity and no crepitus. CARDIOVASCULAR: Heart regular rhythm no murmur or gallop rub or extra beats. LUNGS: Clear to auscultation bilaterally with symmetrical chest rise. No laboring tachypnea or wheezing. No intercostal subcostal retraction. No rales and no rhonchi. ABDOMEN: Soft, flat, nontender to palpation, no guarding or rebound tenderness. There are no abnormal masses palpated. Active and normal bowel sounds. EXTREMITIES: Nontender. BL symmetric, non-pitting edema of BLE. No cyanosis. Patient is able to move all 4 extremities well, with full ROM and good CSM. SKIN: Warm and dry, no jaundice or rashes noted. MUSCULOSKELETAL: There is no CVA tenderness. No tenderness palpation in all 4 extremities, pelvis is stable, no pain, patient does have chronic bilateral lower extremity swelling NEURO: Patient is BUSCH x 4, Cranial nerves II through XII grossly intact. There is no focal neurologic deficits noted. GCS is 15, PNS and SHOP COORDINATOR appear grossly intact. Denies any pain. PSYCHIATRIC: Patient is in normal mood and affect. Course Quality Measures none Orders Category Date Time Status EKG (ED ONLY) *Do not use* NOW Care 04/16/25 21:35 Completed Straight [In and Out Catheter] X1 Care 04/17/25 05:[address] cervical spine wo con Stat Exams 04/16/25 21:[address] head/brain wo con Stat Exams 04/16/25 21:35 Taken CXR1 [XR chest 1V] Stat Exams 04/16/25 21:35 Completed EKG (ED Only) Stat Exams 04/16/25 21:35 Draft CBC Stat Lab 04/16/25 22:01 Completed CK [Creatine Kinase] Stat Lab 04/16/25 22:01 Completed CMP [Comprehensive Metabolic Panel] Stat Lab 04/16/25 22:01 Completed Prothrombin Time with INR Stat Lab 04/16/25 22:01 Completed Troponin I Stat Lab 04/16/25 22:01 Completed Urinalysis, C/S if Indicated Stat Lab 04/16/25 21:35 Ordered Ringers Lactated 500 ml [Lactated Ringers] 500 ml Med 04/17/25 00:53 Discontinued IV 500 mls/hr Vital Signs Vital signs: Vital Signs Temperature 97.9 F 04/16/25 21:59 Pulse Rate 61 04/16/25 21:59 Respiratory Rate 16 04/16/25 21:59 Blood Pressure 142/64 H 04/16/25 21:59 Pulse Oximetry (%) 100 04/16/25 21:59 Oxygen Delivery Method Room Air 04/16/25 21:59 Fall MDM Narrative MDM Narrative:: Patient is an 85-year-old female is in the emergency department after she had a fall while at home. Patient is on Eliquis. Vital signs and exam as above. Concern for acute intracranial hemorrhage, syncope, ACS arrhythmia electrolyte abnormality among others. Ordered labs EKG CT brain after medication for symptom relief. Labs without acute hematologic abnormality, patient is at her baseline hemoglobin. Patient with acute worsening of her kidney function, concern that patient may be slightly fluid down. Provided patient with a small fluid bolus. Patient tolerated well. Troponin not elevated, EKG without evidence of ischemia arrhythmia, chest x-ray unremarkable. At this time my shift is ended. Patient is pending results with her urinalysis and CT brain. For the certified nuclear medicine technologist, there was a delay in obtaining patient CT secondary to increased patient load. I did discuss that the patient was a fall on blood thinners. Patient data External records reviewed:: [facility] previous records (Reviewed prior ED records from 11/16/24. Patient was seen for Hypoglycemia.) Clinical information provided by:: patient Social determinants that could affect healthcare access:: none Patient has the following chronic illnesses:: Peripheral Neuropathy, Atherosclerotic Heart Disease, Peripheral Vascular Disease, Hypercholesterolemia, Edema, Cellulitis, Deep Vein Thrombosis, Hypertension, Pulmonary Embolism, Pulmonary Edema, Gall Bladder Disease, Obesity, Arthritis, Cataracts, Macular Degeneration, Deafness, Diabetes Mellitus Type 2 How is presenting disease/condition affected by chronic disease/condition?: exacerbated by Evaluation data The following diagnostics were reviewed and interpreted by me:: lab results, radiology exam(s) and EKG tracing(s) (EKG done at 2205, 65 bpm, normal intervals, non-specific T-wave changes, not a cardiac alert. - Interpreted by Dr. Rebecca Irby.) Lab and/or radiology exams considered but not ordered:: None Interpretation Summary: RADIOLOGY Chest X-Ray: FINDINGS: Normal heart size Ectatic and enlarged thoracic aorta. No pneumothorax Prominent osteopenia Clavicles ribs appear intact IMPRESSION: No pneumothorax pulmonary contusion or hemothorax Head CT: Findings: There is no evidence of intracranial hemorrhage, mass effect or midline shift. There are periventricular white matter hypodensities, compatible with chronic small vessel ischemia. There is volume loss. The calvarium is unremarkable.The mastoid air cells and the visualized paranasal sinuses are clear. Impression: No evidence of intracranial hemorrhage, mass effect or midline shift. Periventricular chronic small vessel ischemia and volume loss. Cervical Spine CT: Findings: There is no fracture or subluxation. The bones are osteopenic. Straightening of the cervical spine is identified, which may be related to muscle spasm. There are multilevel degenerative changes in the form of marginal osteophytes, decreased disc height, uncinate process and facet arthrosis, most prominent at C3-C4 through C6-C7 causing mild spinal canal and bilateral neural foraminal narrowing. The prevertebral soft tissues are unremarkable. Stable small calcified nodule in the left lobe of thyroid. Impression: No evidence of fracture or traumatic subluxation. Degenerative changes as described above. Medications / Prescriptions Medications or Prescriptions considered but not ordered:: None Medication administrations:: Medication Administration History Discontinued Medications Lactated Ringer's (Lactated Ringers) 500 mls @ 500 mls/hr IV .Q1H ONE Stop: 04/17/25 01:52 Last Infusion: 04/17/25 03:23 Dose: Infused Documented By: Admin: 04/17/25 01:05 Dose: 500 mls/hr Documented By: See above if any Consultations Consultation(s) initiated? (list below): No Diagnosis Fall Differential Diagnosis: syncope, fracture of wrist, compression fracture, concussion with loss of consciousness and concussion without loss of consciousness Most likely diagnosis given after review of the tests above:: Fall on Eliquis, Syncope. Admission Indicated Admission indicated?: not indicated Explain why admission is indicated or not indicated:: Patient does not meet admission criteria. Admission Request Was there a request for admission?: No Disposition Plan Disposition Plan: Discharge Discharge Attestation Discharge Attestation: The patient and all family members were given an opportunity to ask questions and understood the discharge instructions. Discharge instructions specifically effects, indications for sooner follow up or return to the emergency department, and the expected course of current diagnosis. Patient condition: Stable Critical Care Time Critical Care Time Critical Care Time: Yes Total Critical Care Time (min.): 35 Attestation: The high probability of sudden, clinically significant deterioration in the patient?s condition required the highest level of my preparedness to intervene urgently. The services I provided to this patient were to treat and/or prevent clinically significant deterioration. Services included the following: chart data review, reviewing nursing notes and/or old charts, documentation time, residential property consultant collaboration regarding findings and treatment options, medication orders and management, direct patient care, vital sign assessments and ordering, interpreting and reviewing diagnostic studies and lab tests. Aggregate critical care time includes only time during which I was engaged in work directly related to the patient?s care, as described above, whether at bedside or elsewhere in the Emergency Department. It did not include time spent performing other reported procedures or the services of residents, students, nurses or physician assistants. Discharge Plan Plan Patient Disposition: HOME (Self Care) Prescriptions/Referrals Prescriptions/Med Rec: No Action ferrous sulfate 325 mg (65 mg iron) tablet 325 mg PO QDAY Eliquis 2.5 mg tablet 2.5 mg PO BID Januvia 100 mg tablet 100 mg PO QDAY multivitamin Tablet 1 tab PO QDAY atorvastatin 40 mg Tablet 40 mg PO HS Soliqua 100/33 100 unit-33 mcg/mL Insulin Pen 24 unit SUBCUT QAM Linzess 145 mcg Capsule 145 mcg PO QDAY Preservision Areds tablet See Rx Instructions .ROUTE .COMPLEX Rx Instructions: 7160 [id number] unit tablet, Take 1 tablet by mouth daily calcitriol 0.25 mcg Capsule 0.5 mcg PO QDAY Qty: 1 0RF amoxicillin-pot clavulanate [Augmentin] 500-125 mg tablet 1 tab PO BID Qty: 14 0RF Referrals: No Primary/Family,Physician [Primary Care Provider] - In 1 week Problem List Clinical Impression: Fall, Syncope, Anticoagulated on Eliquis Patient/Caregiver Discharge Instructions Print Language: Barbadian Stand Alone Forms: Lillian Award Info., Patient Portal Info Letter
[2025-04-17] VITALS (7 sets, daily range): BP systolic 115–175; BP diastolic 49–82; PULSE 52–62; RESP 16–19; TEMP 36.4–36.6; O2SAT 99–100
[2025-04-17] MEDS: RINGERS LACTATED 500 ML 500 ML IV (01:05)
--- NOTE | 2025-04-17 06:20 | EDNOTE_ITS ---
Emergency Room Addendum <Guadalupe Cuba - Last Filed: 04/17/25 09:58> Addendum Narrative: 0600: Care assumed from Dr. Irby, the previous shift emergency physician. Past medical, surgical, social and family history reviewed. Vitals and home medications reviewed. I will assume the care of the patient at this time, pending remainder of diagnostic tests and final disposition. Please refer to the emergency department record for history and examination from initial visit.? Physical exam by me shows patient under no acute distress at this time. Patient was signed out 0600 hrs. pending a urinalysis. As of 712 there is still no UA collected. <Star Espinoza MD - Last Filed: 04/17/25 14:04> Addendum Narrative: 0600: Care assumed from Dr. Irby, the previous shift emergency physician. Past medical, surgical, social and family history reviewed. Vitals and home medications reviewed. I will assume the care of the patient at this time, pending remainder of diagnostic tests and final disposition. Please refer to the emergency department record for history and examination from initial visit.? Physical exam by me shows patient under no acute distress at this time. Patient was signed out 0600 hrs. pending a urinalysis. As of 712 there is still no UA collected. Urinalysis was finally collected and came back negative. Patient was ambulated but somewhat unsteady and needs a great assistance. Normally needs a walker. And the renal function was worsening. I called the hospitalist team to come down and they decided to admit the patient. Then Dr. Manley came by 2 hours later stated she knows this patient very well feels that the creatinine is improving after the fluids were given at the patient safe to go home and that there is no reason to keep her in the hospital at this point. I discussed the trending of worsening renal function in the past [address] Manley and she is states she will be monitoring this and following it. So plan this time be to discharge home per Dr. Manley. Results <Guadalupe Cuba - Last Filed: 04/17/25 09:58> Objective Laboratory: Laboratory Last Values WBC 7.8 Thou/mm3 (3.6-11.0) 04/16/25 22:01 RBC 3.18 Miln/mm3 (4.00-5.20) L 04/16/25 22:01 Hgb 9.7 g/dL (12.0-16.0) L 04/16/25 22:01 Hct 29.0 % (36.0-46.0) L 04/16/25 22:01 MCV 91 fL (80-100) 04/16/25 22:01 MCH 30.5 pg (25.0-35.0) 04/16/25 22:01 MCHC 33.4 g/dl (31.0-37.0) 04/16/25 22:01 RDW Std Deviation 48.0 fL (36.4-46.3) H 04/16/25 22:01 Plt Count 278 Thou/mm3 (140-440) D 04/16/25 22:01 Neut % (Auto) 73 % (37-80) 04/16/25 22:01 Lymph % (Auto) 12 % (10-50) 04/16/25 22:01 Gage % (Auto) 10 % (0-12) 04/16/25 22:01 Eos % (Auto) 3 % (0-10) 04/16/25 22:01 Baso % (Auto) 1 % (0-2.5) 04/16/25 22:01 Neut # (Auto) 5.7 Thou/mm3 (1.8-7.7) 04/16/25 22:01 Lymph # (Auto) 0.9 Thou/mm3 (1.0-4.8) L 04/16/25 22:01 Gage # (Auto) 0.8 Thou/mm3 (0.0-0.8) 04/16/25 22:01 Eos # (Auto) 0.3 Thou/mm3 (0.0-0.5) 04/16/25 22:01 Baso # (Auto) 0.1 Thou/mm3 (0.0-0.2) 04/16/25 22:01 Immature Gran # (Auto) 0.06 Thou/mm3 (0.00-0.00) H 04/16/25 22:01 Absolute Nucleated RBC 0.00 Thou/mm3 (0.00-0.00) 04/16/25 22:01 Immature Gran % 1 % (0-0) H 04/16/25 22:01 Nucleated RBC % 0 /100 WBC (0) 04/16/25 22:01 PT 12.6 Seconds (9.0-12.2) H 04/16/25 22:01 INR 1.2 (0.9-1.3) 04/16/25 22:01 Sodium 132 mMol/L (136-145) L 04/16/25 22:01 Potassium 4.5 mMol/L (3.4-5.1) 04/16/25 22:01 Chloride 95 mMol/L (98-107) L 04/16/25 22:01 Carbon Dioxide 27.5 mMol/L (20.0-31.0) 04/16/25 22:01 Anion Gap 10 (7-16) 04/16/25 22:01 BUN 65 mg/dL (9-23) H 04/16/25 22:01 Creatinine 1.8 mg/dL (0.6-1.3) H 04/16/25 22:01 Estim Creat Clear Calc 22.0 mL/min (>60) L 04/16/25 22:01 eGFR 27 See Note (60-) L 04/16/25 22:01 BUN/Creatinine Ratio 36 Ratio (12-20) H 04/16/25 22:01 Glucose 164 mg/dL (74-106) H 04/16/25 22:01 Calculated Osmolality 287 (275-295) 04/16/25 22:01 Calcium 8.9 mg/dL (8.3-10.6) 04/16/25 22:01 Corrected Calcium 9.4 mg/dL (8.5-10.1) 04/16/25 22:01 Total Bilirubin 0.3 mg/dL (0.3-1.2) 04/16/25 22:01 AST 50 U/L (0-34) H 04/16/25 22:01 ALT 26 U/L (10-49) 04/16/25 22:01 Alkaline Phosphatase 157 U/L (46-116) H 04/16/25 22:01 Total Creatine Kinase 115 U/L (34-171) 04/16/25 22:01 Troponin I < 0.020 ng/mL (0.0-0.045) 04/16/25 22:01 Total Protein 6.6 gm/dL (5.7-8.2) 04/16/25 22:01 Albumin 3.4 gm/dL (3.4-4.8) 04/16/25 22:01 Globulin 3.2 gm/dL (2.3-3.5) 04/16/25 22:01 Albumin/Globulin Ratio 1.1 (1.2-2.2) L 04/16/25 22:01 Imaging: Procedure(s): XR chest 1V Accession Number(s): [id number] cc: Hans Mariee MD; NO PRIMARY/FAMILY,PHYSICIAN; Rebecca Irby MD~ Examination: AP chest single view TECHNIQUE: AP portable semiupright chest single view Date and time: April 16, 2025 10:34 PM Comparison April 12, 2024 INDICATIONS: Patient fell today with injury to the chest, chest pain FINDINGS: Normal heart size Ectatic and enlarged thoracic aorta. No pneumothorax Prominent osteopenia Clavicles ribs appear intact IMPRESSION: No pneumothorax pulmonary contusion or hemothorax Dictated By: Hans Mariee MD Procedure(s): CT head/brain wo con Accession Number(s): [id number] cc: Hans Mariee MD; NO PRIMARY/FAMILY,PHYSICIAN; Rebecca Irby MD~ Examination: CT brain head without contrast. 2-D sagittal coronal reconstructions Date and time of exam:April 17, 2025 at 0458 hours INDICATIONS: Injury to the head today, head pain CTDI: vol (mGy):8 DLP: (mGycm):185 Technique: Multiple CT axial sections of the brain have been obtained, 5 mm slice thickness. Contrast has not been administered. 2-D sagittal, coronal reconstructions have been obtained Low dose protocols were performed. One or more of the following dose reduction techniques were used; automated exposure control, adjustment of the mA and/or KV according to patient size, use of iterative reconstruction technique. Findings: No significant ventricular enlargement. Intra-axial or extra-axial hemorrhage density is not seen. No mass effect or midline shift Basal cisterns are not remarkable. Fourth ventricle is midline. Cranial vault intact. Impression: Negative for acute hemorrhage, mass effect or midline shift Dictated By: Hans Mariee MD Procedure(s): CT cervical spine wo [facility] Accession Number(s): [id number] cc: Hans Mariee MD; NO PRIMARY/FAMILY,PHYSICIAN; Rebecca Irby MD~ Examination: CT cervical spine without contrast 2-D sagittal reconstructions 2-D coronal reconstructions 3-D reconstructions. Exam date and time:April 17, 2025 0458 hours INDICATIONS: Injury to the head today, head pain neck pain CTDI:vol (mGy) 8.9 DLP: (mGycm) 189 Technique: Multiple 2 mm axial sections of the cervical spine have been obtained. The coronal and sagittal reconstructions have been obtained. 3-D reconstructions have been obtained. Low dose protocols were performed. One or more of the following dose reduction techniques were used; automated exposure control, adjustment of the mA and/or KV according to patient size, use of iterative reconstruction technique. Findings: Axial sections demonstrate intact base of the skull. C1 exhibit satisfactory relationship to the odontoid. No acute cervical vertebral body fracture seen. Alignment posterior spinous processes satisfactory. Impression: No acute cervical fracture. Dictated By: Hans Mariee MD <Star Espinoza MD - Last Filed: 04/17/25 14:04> Objective Laboratory: Laboratory Last Values WBC 7.8 Thou/mm3 (3.6-11.0) 04/16/25 22: RBC 3.18 Miln/mm3 (4.00-5.20) L 04/16/25 22:01 Hgb 9.7 g/dL (12.0-16.0) L 04/16/25 22:01 Hct 29.0 % (36.0-46.0) L 04/16/25 22: MCV 91 fL (80-100) 04/16/25 22:01 MCH 30.5 pg (25.0-35.0) 04/16/25 22: MCHC 33.4 g/dl (31.0-37.0) 04/16/25 22: RDW Std Deviation 48.0 fL (36.4-46.3) H 04/16/25 22:01 Plt Count 278 Thou/mm3 (140-440) D 04/16/25 22:01 Neut % (Auto) 73 % (37-80) 04/16/25 22:01 Lymph % (Auto) 12 % (10-50) 04/16/25 22:01 Gage % (Auto) 10 % (0-12) 04/16/25 22:01 Eos % (Auto) 3 % (0-10) 04/16/25 22:01 Baso % (Auto) 1 % (0-2.5) 04/16/25 22:01 Neut # (Auto) 5.7 Thou/mm3 (1.8-7.7) 04/16/25 22:01 Lymph # (Auto) 0.9 Thou/mm3 (1.0-4.8) L 04/16/25 22:01 Gage # (Auto) 0.8 Thou/mm3 (0.0-0.8) 04/16/25 22:01 Eos # (Auto) 0.3 Thou/mm3 (0.0-0.5) 04/16/25 22:01 Baso # (Auto) 0.1 Thou/mm3 (0.0-0.2) 04/16/25 22:01 Immature Gran # (Auto) 0.06 Thou/mm3 (0.00-0.00) H 04/16/25 22: Absolute Nucleated RBC 0.00 Thou/mm3 (0.00-0.00) 04/16/25 22:01 Immature Gran % 1 % (0-0) H 04/16/25 22:01 Nucleated RBC % 0 /100 WBC (0) 04/16/25 22:01 PT 12.6 Seconds (9.0-12.2) H 04/16/25 22:01 INR 1.2 (0.9-1.3) 04/16/25 22:01 Sodium 132 mMol/L (136-145) L 04/16/25 22:01 Potassium 4.5 mMol/L (3.4-5.1) 04/16/25 22:01 Chloride 95 mMol/L (98-107) L 04/16/25 22:01 Carbon Dioxide 27.5 mMol/L (20.0-31.0) 04/16/25 22:01 Anion Gap 10 (7-16) 04/16/25 22:01 BUN 65 mg/dL (9-23) H 04/16/25 22:01 Creatinine 1.8 mg/dL (0.6-1.3) H 04/16/25 22:01 Estim Creat Clear Calc 22.0 mL/min (>60) L 04/16/25 22:01 eGFR 27 See Note (60-) L 04/16/25 22:01 BUN/Creatinine Ratio 36 Ratio (12-20) H 04/16/25 22:01 Glucose 164 mg/dL (74-106) H 04/16/25 22:01 Calculated Osmolality 287 (275-295) 04/16/25 22:01 Calcium 8.9 mg/dL (8.3-10.6) 04/16/25 22:01 Corrected Calcium 9.4 mg/dL (8.5-10.1) 04/16/25 22:01 Total Bilirubin 0.3 mg/dL (0.3-1.2) 04/16/25 22:01 AST 50 U/L (0-34) H 04/16/25 22:01 ALT 26 U/L (10-49) 04/16/25 22:01 Alkaline Phosphatase 157 U/L (46-116) H 04/16/25 22:01 Total Creatine Kinase 115 U/L (34-171) 04/16/25 22:01 Troponin I < 0.020 ng/mL (0.0-0.045) 04/16/25 22:01 Total Protein 6.6 gm/dL (5.7-8.2) 04/16/25 22: Albumin 3.4 gm/dL (3.4-4.8) 04/16/25 22: Globulin 3.2 gm/dL (2.3-3.5) 04/16/25 22:01 Albumin/Globulin Ratio 1.1 (1.2-2.2) L 04/16/25 22:01
[2025-04-17 07:44] LABS: Collection Type, Urine Clean Catch
[2025-04-17 08:04] LABS: Bacteria,Urine Rare; Bilirubin,Urine Negative (Negative); Blood,Urine Negative (Negative); Clarity,Urine Clear (Clear/Hazy); Color,Urine Colorless (Lt Yel-Yel); Culture Indicated,Urine Not Indicated; Glucose, Urine Negative (Negative); Ketones,Urine Negative (Negative); Leukocyte Esterase,Urine Negative (Negative); Nitrite,Urine Negative (Negative); PH,Urine 5.5 (5.0-7.0); Protein,Urine Negative (Neg - Trace); RBC,Urine 2 /hpf (0-3); Specific Gravity,Urine 1.008 (1.001-1.035); Squamous Epithelial Cell,Urine 1 /hpf (0-5); Urobilinogen,Urine Negative mg/dL (0.0-1.0); WBC,Urine 1 /hpf (0-5)
--- NOTE | 2025-04-17 09:33 | PC.WOUND ---
Pt seen for wound care in ED#4 to LLE chronic venous ulceration. Chronic, No acute s/s of infection to site. She is followed weekly by home health and monthly at [facility], performs daily wound care independently. Agrees to followup once discharged, denies need for supplies or dressing change education. Also see wound global process owner
--- NOTE | 2025-04-17 11:56 | PC.NURSE ---
ASSISTED PT TO USE THE BEDSIDE COMMOND. GAIT WAS A BIT UNSTEADY AND PT APPEARED WEAK. PT DENIES SOB AND CHEST PAIN
[2025-04-17] MEDS: SODIUM CHLORIDE 0.9% 1000 ML 1,000 ML 150 ML IV (12:11)
[2025-04-17] MEDS: SODIUM CHLORIDE 0.9% 500 ML 500 ML 999 ML IV (12:13)
[2025-04-17 12:25] LABS: Lactate (Lactic Acid) 1.3 mMol/L (0.4-2.0)
[2025-04-17 12:51] LABS: Anion Gap 6 (7-16); BUN/Creatinine Ratio 34 Ratio (12-20); Blood Urea Nitrogen 51 mg/dL (9-23); Calcium 9.1 mg/dL (8.3-10.6); Chloride 101 mMol/L (98-107); Creatinine (Component) 1.5 mg/dL (0.6-1.3); Estimated Creatinine Clearance 26.4 mL/min (>60); Glucose 119 mg/dL (74-106); Osmolality,Calculated 286 (275-295); Potassium 4.1 mMol/L (3.4-5.1); Sodium 136 mMol/L (136-145); eGFR 34 See Note
== END 2025-04-17 14:08 | disposition home or self-care (01) ==
PROVIDERS: Emergency Medicine; Emergency Provider Emergency Medicine
DX: S09.90XA Unspecified injury of head, initial encounter (principal); S29.9XXA Unspecified injury of thorax, initial encounter; R55 Syncope and collapse; I45.10 Unspecified right bundle-branch block; M54.2 Cervicalgia; I10 Essential (primary) hypertension; W01.0XXA Fall on same level from slipping, tripping and stumbling without subsequent striking against object, initial encounter; Z79.01 Long term (current) use of anticoagulants
CPT/HCPCS: 36415; 70450; 71045; 72125; 80048; 80053; 81001; 82550; 83605; 84484; 85025; 85610; 93005; 96360; 96361; 99284; J7030; J7120; J7999

== ENCOUNTER 2025-04-19 16:19 | Emergency (ER) | payer MEDICARE, MEDICAID, SELFPAY ==
[2025-04-19 16:22] VITALS: BP 118/54; PULSE 75; RESP 18; TEMP 36.7; O2SAT 97
[2025-04-19 16:23] VITALS: BMI 34.0
[2025-04-19 16:34] VITALS: PULSE 76; RESP 18; O2SAT 97
[2025-04-19 16:41] VITALS: BP 116/59; PULSE 115; RESP 19; O2SAT 98
--- NOTE | 2025-04-19 17:39 | PD.EDADULT ---
ED General RME/HPI General Chief complaint: Fall Stated complaint: FALL Time Seen by Provider: 04/19/25 17:05 Arrival date/time: 04/19/25 16:19 Limitations: no limitations RME / HPI RME / HPI narrative: DR. BEATTY MAIN ED EVALUATION: 85 year old female presents to the Emergency Department [facility] with complaint of fall prior to arrival and bumped her head. She has a bump on her right top head and has a mild headache. She states she fell while in the kitchen, fell all the way to the floor. Did not mention if she was feeling sick or tripped. No loss of consciousness. No other injuries or symptoms reported at this time. PMHx: Peripheral neuropathy, peripheral vascular disease, x3 angiograms, DVT on Eliquis for DVT, hypertension, and DM 2. Social Hx: No tobacco, alcohol, or substance use. Related Data Home Medications ?Medication ?Instructions ?Recorded ?Confirmed multivitamin 1 tab PO QDAY 02/11/18 04/13/24 atorvastatin 40 mg tablet 40 mg PO HS 11/28/19 04/13/24 apixaban 2.5 mg tablet (Eliquis) 2.5 mg PO BID 01/29/22 04/13/24 sitagliptin phosphate 100 mg 100 mg PO QDAY 01/31/22 04/13/24 tablet (Januvia) ferrous sulfate 325 mg (65 mg 325 mg PO QDAY 01/18/23 04/13/24 iron) tablet Preservision Areds See Rx Instructions .Route .COMPLEX 04/13/24 04/13/24 insulin glargine 100 24 unit subcut QAM 04/13/24 04/13/24 unit-lixisenatide 33 mcg/mL subcutaneous pen (Soliqua 100/33) linaclotide 145 mcg capsule 145 mcg PO QDAY 04/13/24 04/13/24 (Linzess) Previous Rx's ?Medication ?Instructions ?Recorded amoxicillin 500 mg-potassium 1 tab PO BID #14 tabs 04/15/24 clavulanate 125 mg tablet (Augmentin) calcitriol 0.25 mcg capsule 0.5 mcg (2 x 0.25 mcg) PO QDAY #1 04/15/24 cap Allergies Allergy/AdvReac Type Severity Reaction Status Date / Time adhesive tape Allergy Blister Verified 06/15/24 14:36 Review of Systems Review of Systems Systems Reviewed: All systems reviewed, normal except as documented Past Medical History Past Medical History NEUROLOGIC: Positive Peripheral Neuropathy CARDIAC: Positive Cardiac Disorders, Coronary Artery Disease, Atherosclerotic Heart Disease, Peripheral Vascular Disease, Hypercholesterolemia, Edema, Cellulitis, Deep Vein Thrombosis and Hypertension RESPIRATORY: Positive Pulmonary Embolism and Pulmonary Edema GASTROINTESTINAL: Positive Gastrointestinal Disorders, Gall Bladder Disease and Obesity MUSCULOSKELETAL: Positive Musculoskeletal Disorders, Arthritis and Fractures ENT: Positive Cataracts, Macular Degeneration and Deafness ENDOCRINE: Positive Endocrine Disorders and Diabetes Mellitus Type 2 HEMATOLOGIC: Positive Blood Disorders, Anemia and Clotting Problems OTHER HISTORY: Positive Hospitalization, Falls, Chicken Pox, Measles, Mumps and Cancer Family History FAMILY HISTORY: Positive Family Cardiac Disorders, Family Cancer and Family Surgery Surgical History SURGICAL: Positive Angiogram, Ear Surgery, Abdominal Surgery and Hysterectomy Social History SMOKING STATUS: Never smoker SECOND HAND EXPOSURE: No SUBSTANCE USE: does not use ALCOHOL: Never ED Exam General Limitations: Present no limitations General appearance: Present alert and in no apparent distress Head Head exam: Present atraumatic, normocephalic and normal inspection Eye Eye exam: Present normal appearance, PERRL and EOMI ENT ENT exam: Present normal exam, normal oropharynx and mucous membranes moist Neck Neck exam: Present normal inspection, full ROM and trachea midline Chest Chest inspection: Present normal inspection and symmetric chest wall rise Respiratory Respiratory exam: Present normal lung sounds bilaterally Cardiovascular Cardiovascular exam: Present regular rate, normal rhythm and normal heart sounds Abdominal Exam Abdominal exam: Present soft and normal bowel sounds Extremities Exam Extremities exam: Present normal inspection and full ROM Back Exam Back exam: Present normal inspection and full ROM Neurological Exam Neurological exam: Present alert, oriented X3 and CN II-XII intact Psychiatric Psychiatric exam: Present normal affect and normal mood Skin Skin exam: Present warm, dry, intact and normal color Course Quality Measures none Orders Category Date Time Status CT cervical spine wo con Stat Exams 04/19/25 18:[address] head/brain wo con Stat Exams 04/19/25 18:18 Completed XR chest 1V portable Stat Exams 04/19/25 18:18 Completed BMP [Basic Metabolic Panel] Stat Lab 04/19/25 18:47 Completed CBC Stat Lab 04/19/25 18:47 Completed Magnesium Stat Lab 04/19/25 18:47 Completed PT [Prothrombin Time with INR] Stat Lab 04/19/25 18:47 Completed PTT [Partial Thromboplastin Time] Stat Lab 04/19/25 18:47 Completed Vital Signs Vital signs: Vital Signs Temperature 98.1 F 04/19/25 16:22 Pulse Rate 75 04/19/25 16:22 Respiratory Rate 18 04/19/25 16:22 Blood Pressure 118/54 L 04/19/25 16:22 Pulse Oximetry (%) 97 04/19/25 16:22 Discharge Plan Plan Patient Disposition: HOME (Self Care) Prescriptions/Referrals Prescriptions/Med Rec: No Action ferrous sulfate 325 mg (65 mg iron) tablet 325 mg PO QDAY Eliquis 2.5 mg tablet 2.5 mg PO BID Januvia 100 mg tablet 100 mg PO QDAY multivitamin Tablet 1 tab PO QDAY atorvastatin 40 mg Tablet 40 mg PO HS Soliqua 100/33 100 unit-33 mcg/mL Insulin Pen 24 unit SUBCUT QAM Linzess 145 mcg Capsule 145 mcg PO QDAY Preservision Areds tablet See Rx Instructions .ROUTE .COMPLEX Rx Instructions: 7160 [id number] unit tablet, Take 1 tablet by mouth daily calcitriol 0.25 mcg Capsule 0.5 mcg PO QDAY Qty: 1 0RF amoxicillin-pot clavulanate [Augmentin] 500-125 mg tablet 1 tab PO BID Qty: 14 0RF Referrals: No Primary/Family,Physician [Primary Care Provider] - In 1 week Problem List Clinical Impression: Scalp contusion Patient/Caregiver Discharge Instructions Discharge Activity: activity as tolerated Education Materials: ED Scalp Contusion, ED Head Injury (Adult) Additional Instructions: Discharge Instructions from Dr. Fairbanks printed for you: 1. Fortunately, there is no very serious injury. Such as brain injury or broken neck or other broken bone or internal organ injury. 2. Apply ice (to your scalp contusion) for 20 minutes every 2-3 hours today and tomorrow. 3. Tylenol as needed. 4. See a private doctor on 04/21/2025 if not completely better. 5. Seek immediate medical care with severe and persistent headache, persistent vomiting, being extremely drowsy when you should be completely alert and awake, or with any concerns. Print Language: Khmer Stand Alone Forms: Lillian Award Info., Patient Portal Info Letter MDM Narrative Sign out note: 1800: Patient was signed out to Dr. Fairbanks. Past medical, surgical, social and family history reviewed. Vitals and home medications reviewed. Results and treatment plan discussed. They will assume the care of the patient at this time and will follow the patient, pending entire work-up and final disposition. [facility] hospital course: I, Guadalupe Cuba, am scribing for and in the presence of Dr. Beatty. Clinical Information Provided by patient and EMS Medical Records Reviewed [facility] and EMS Meds/Rx Considered, not Ordered None Labs/Rad/Tests considered, not Ordered None Chronic Illness/Social Conditions Add or document further as needed: Peripheral neuropathy, peripheral vascular disease, x3 angiograms, DVT on Eliquis for DVT, hypertension, and DM 2. Diagnosis Differential diagnosis: fall, injury, head injury Most likely dx, and/or detailed dx discussion: No official diagnoses at this time, still pending diagnostic tests. Patient signout to the warehouse supervisor 3rd shift provider. Dispositon Disposition comments: No final disposition plan at this time, still pending diagnostic tests. Patient signout to the warehouse supervisor 3rd shift provider.
[2025-04-19 18:04] VITALS: BP 166/59; PULSE 58; RESP 19; TEMP 36.8; O2SAT 100
--- NOTE | 2025-04-19 18:18 | XR_ITS ---
Examination: CT brain head without contrast. 2-D sagittal coronal reconstructions Date and time of exam:April 19, 2025 1832 hours INDICATIONS: Patient fell today with injury to the head, head pain CTDI: vol (mGy):46 DLP: (mGycm):852 Technique: Multiple CT axial sections of the brain have been obtained, 5 mm slice thickness. Contrast has not been administered. 2-D sagittal, coronal reconstructions have been obtained Low dose protocols were performed. One or more of the following dose reduction techniques were used; automated exposure control, adjustment of the mA and/or KV according to patient size, use of iterative reconstruction technique. Findings: No significant ventricular enlargement. Intra-axial or extra-axial hemorrhage density is not seen. No mass effect or midline shift Basal cisterns are not remarkable. Fourth ventricle is midline. Cranial vault intact. Impression: Negative for acute hemorrhage, mass effect or midline shift
--- NOTE | 2025-04-19 18:18 | XR_ITS ---
Examination: CT cervical spine without contrast 2-D sagittal reconstructions 2-D coronal reconstructions 3-D reconstructions. Exam date and time:April 19, 2025 1832 hours INDICATIONS: Patient fell today with injury to the neck, neck pain CTDI:vol (mGy) 8.80 DLP: (mGycm) 165 Technique: Multiple 2 mm axial sections of the cervical spine have been obtained. The coronal and sagittal reconstructions have been obtained. 3-D reconstructions have been obtained. Low dose protocols were performed. One or more of the following dose reduction techniques were used; automated exposure control, adjustment of the mA and/or KV according to patient size, use of iterative reconstruction technique. Findings: Axial sections demonstrate intact base of the skull. C1 exhibit satisfactory relationship to the odontoid. No acute cervical vertebral body fracture seen. Alignment posterior spinous processes satisfactory. Impression: No acute cervical fracture.
--- NOTE | 2025-04-19 18:18 | XR_ITS ---
Examination: AP portable chest single view TECHNIQUE: AP portable semiupright chest single view Date and time: April 19, 2025 at 1823 hours, comparison April 16, 2025 INDICATIONS: Shortness of breath chest pain today FINDINGS: Normal heart size No pneumonia or pulmonary edema Prominent osteopenia Impression : No pneumonia or pulmonary edema
--- NOTE | 2025-04-19 18:20 | PD.EDFALL ---
ED Fall Injury RME/HPI General Chief Complaint: Fall Stated Complaint: FALL Time Seen by Provider: 04/19/25 17:05 Arrival date/time: 04/19/25 16:19 RME / HPI RME / HPI Narrative: This section includes all my notes and documentations, including HPI, PE, and ED course. 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 Patient states she was in the kitchen getting something to eat, and when she turned around to grab her walker, she missed it and fell backwards, hitting the back of her head. No loss of consciousness. No dizziness, lightheadedness, weakness or any other associated symptoms. Patient does live alone. No other complaints reported. ROS: All negative except as documented in HPI. Physical Exam: General: Alert and oriented. No acute distress. Eyes: Conjunctivae and lids clear. EOMI. PERRL. ENT: No nasal congestion. Pharynx normal. Tympanic membrane normal bilaterally. Neck: Supple. No tenderness. Heart: RRR. Lungs: No respiratory distress. Good air movement. No rhonchi, wheezing, rales. Chest: No tenderness. Abdomen: Soft and nontender. Normal bowel sounds. No distension. No rebound or guarding. Back: No tenderness. Skin: Warm and dry. Grape-sized hematoma to the right parietal scalp. Neuro: Alert and oriented X 3. Cranial Nerves II-XII grossly intact. No peripheral motor deficits. Musculoskeletal: All major joints and bones are not tender with no limited ROM. I reviewed EMS notes. I reviewed all diagnostic test results. My interpretation of the chest x-ray is NAD. My review of the CT head report is unremarkable. My review of the CT cervical spine report is unremarkable. Blood tests unremarkable. At this point, diagnoses include scalp contusion. Recommended supportive care. Based on my best medical judgment, made decision no further evaluation or treatment indicated at this time. Patient understands and agrees to the discharge instructions customized and printed, see below. Discharge Instructions from Dr. Fairbanks printed for you: 1. Fortunately, there is no very serious injury. Such as brain injury or broken neck or other broken bone or internal organ injury. 2. Apply ice (to your scalp contusion) for 20 minutes every 2-3 hours today and tomorrow. 3. Tylenol as needed. 4. See a private doctor on 04/21/2025 if not completely better. 5. Seek immediate medical care with severe and persistent headache, persistent vomiting, being extremely drowsy when you should be completely alert and awake, or with any concerns. Malik Fairbanks MD Related Data Home Medications ?Medication ?Instructions ?Recorded ?Confirmed multivitamin 1 tab PO QDAY 02/11/18 04/13/24 atorvastatin 40 mg tablet 40 mg PO HS 11/28/19 04/13/24 apixaban 2.5 mg tablet (Eliquis) 2.5 mg PO BID 01/29/22 04/13/24 sitagliptin phosphate 100 mg 100 mg PO QDAY 01/31/22 04/13/24 tablet (Januvia) ferrous sulfate 325 mg (65 mg 325 mg PO QDAY 01/18/23 04/13/24 iron) tablet Preservision Areds See Rx Instructions .Route .COMPLEX 04/13/24 04/13/24 insulin glargine 100 24 unit subcut QAM 04/13/24 04/13/24 unit-lixisenatide 33 mcg/mL subcutaneous pen (Soliqua 100/33) linaclotide 145 mcg capsule 145 mcg PO QDAY 04/13/24 04/13/24 (Linzess) Previous Rx's ?Medication ?Instructions ?Recorded amoxicillin 500 mg-potassium 1 tab PO BID #14 tabs 04/15/24 clavulanate 125 mg tablet (Augmentin) calcitriol 0.25 mcg capsule 0.5 mcg (2 x 0.25 mcg) PO QDAY #1 04/15/24 cap Allergies Allergy/AdvReac Type Severity Reaction Status Date / Time adhesive tape Allergy Blister Verified 04/12/24 14:36 Review of Systems Review of Systems Systems Reviewed: All systems reviewed, normal except as documented Past Medical History Past Medical History NEUROLOGIC: Positive Peripheral Neuropathy; Negative Neurological Disorders or Seizures CARDIAC: Positive Cardiac Disorders, Coronary Artery Disease, Atherosclerotic Heart Disease, Peripheral Vascular Disease, Hypercholesterolemia, Edema, Cellulitis, Deep Vein Thrombosis and Hypertension; Negative Congestive Heart Failure or Varicose Veins RESPIRATORY: Positive Pulmonary Embolism and Pulmonary Edema; Negative Chronic Obstructive Pulmonary Disease (COPD) or Asthma GASTROINTESTINAL: Positive Gastrointestinal Disorders, Gall Bladder Disease and Obesity; Negative Hepatitis GENITOURINARY: Negative Genitourinary Disorders or Renal Disease REPRODUCTIVE: Negative Previous Pregnancies MUSCULOSKELETAL: Positive Musculoskeletal Disorders, Arthritis and Fractures ENT: Positive Cataracts, Macular Degeneration and Deafness; Negative Glaucoma, Retinal Detachment, Ear Infection or Eye Prosthesis ENDOCRINE: Positive Endocrine Disorders and Diabetes Mellitus Type 2; Negative Diabetes Mellitus Type 1 HEMATOLOGIC: Positive Blood Disorders, Anemia and Clotting Problems; Negative Sickle Cell Disease OTHER HISTORY: Positive Hospitalization, Falls, Chicken Pox, Measles, Mumps and Cancer; Negative Autoimmune Disease, Down Syndrome, Developmental Delay, Shingles, Blood Transfusions, Blood Transfusion Reaction, Anesthesia Reactions, Organ Transplant, Chemotherapy, Radiation Therapy, Hyperbaric Therapy or MRSA Family History FAMILY HISTORY: Positive Family Cardiac Disorders, Family Cancer and Family Surgery; Negative Family Psychiatric Problems, Family Respiratory Disorders, Family Gastrointestinal Problems or Family Anesthesia Reaction Surgical History SURGICAL: Positive Angiogram, Ear Surgery, Abdominal Surgery and Hysterectomy; Negative Cardiac Surgery, Endocrine Surgery, Thyroidectomy, Joint Replacement or Organ Transplant Social History SMOKING STATUS: Never smoker SECOND HAND EXPOSURE: No SUBSTANCE USE: does not use ED Exam Narrative Physical exam: As noted in HPI. Course Course Course Narrative: CXR is ordered to r/o pneumothorax. Quality Measures none Orders Category Date Time Status CT cervical spine wo con Stat Exams 04/19/25 18:[address] head/brain wo con Stat Exams 04/19/25 18:18 Completed XR chest 1V portable Stat Exams 04/19/25 18:18 Completed BMP [Basic Metabolic Panel] Stat Lab 04/19/25 18:47 Completed CBC Stat Lab 04/19/25 18:47 Completed Magnesium Stat Lab 04/19/25 18:47 Completed PT [Prothrombin Time with INR] Stat Lab 04/19/25 18:47 Completed PTT [Partial Thromboplastin Time] Stat Lab 04/19/25 18:47 Completed Vital Signs Vital signs: Vital Signs Temperature 98.1 F 04/19/25 16:22 Pulse Rate 75 04/19/25 16:22 Respiratory Rate 18 04/19/25 16:22 Blood Pressure 118/54 L 04/19/25 16:22 Pulse Oximetry (%) 97 04/19/25 16:22 Fall MDM Narrative MDM Narrative:: 85yo female with a history of Peripheral Neuropathy, PVD, DVT on Eliquis, HTN, PE, Arthritis, DMII BIBA from home presents to the ED for a chief complaint of a fall. Patient states she was in the kitchen getting something to eat, and when she turned around to grab her walker, she missed it and fell backwards, hitting the back of her head. No loss of consciousness. No dizziness, lightheadedness, weakness or any other associated symptoms. Patient does live alone. No other complaints reported. Patient data External records reviewed:: [facility] previous records (Per chart review, patient was seen here on 04/17/25 for BRIELLE.) and EMS form Clinical information provided by:: patient Social determinants that could affect healthcare access:: none Patient has the following chronic illnesses:: Peripheral Neuropathy, PVD, DVT on Eliquis, HTN, PE, Arthritis, DMII How is presenting disease/condition affected by chronic disease/condition?: uneffected by Evaluation data The following diagnostics were reviewed and interpreted by me:: lab results and radiology exam(s) Lab and/or radiology exams considered but not ordered:: none Interpretation Summary: I reviewed all diagnostic test results. My interpretation of the chest x-ray is NAD. My review of the CT head report is unremarkable. My review of the CT cervical spine report is unremarkable. Blood tests unremarkable. Medications / Prescriptions Medications or Prescriptions considered but not ordered:: none Medication administrations:: none Consultations Consultation(s) initiated? (list below): No Diagnosis Fall Differential Diagnosis: syncope, concussion with loss of consciousness, concussion without loss of consciousness and other (Skull fracture, cervical spinal fracture) Most likely diagnosis given after review of the tests above:: Scalp contusion Admission Indicated Admission indicated?: not indicated Explain why admission is indicated or not indicated:: With no condition needing emergent intervention, there was no indication for admission. Admission Request Was there a request for admission?: No Disposition Plan Disposition Plan: Discharge Discharge Attestation Discharge Attestation: The patient and all family members were given an opportunity to ask questions and understood the discharge instructions. Discharge instructions specifically effects, indications for sooner follow up or return to the emergency department, and the expected course of current diagnosis. Patient condition: Stable Discharge Plan Plan Patient Disposition: HOME (Self Care) Prescriptions/Referrals Prescriptions/Med Rec: No Action ferrous sulfate 325 mg (65 mg iron) tablet 325 mg PO QDAY Eliquis 2.5 mg tablet 2.5 mg PO BID Januvia 100 mg tablet 100 mg PO QDAY multivitamin Tablet 1 tab PO QDAY atorvastatin 40 mg Tablet 40 mg PO HS Soliqua 100/33 100 unit-33 mcg/mL Insulin Pen 24 unit SUBCUT QAM Linzess 145 mcg Capsule 145 mcg PO QDAY Preservision Areds tablet See Rx Instructions .ROUTE .COMPLEX Rx Instructions: 7160 [id number] unit tablet, Take 1 tablet by mouth daily calcitriol 0.25 mcg Capsule 0.5 mcg PO QDAY Qty: 1 0RF amoxicillin-pot clavulanate [Augmentin] 500-125 mg tablet 1 tab PO BID Qty: 14 0RF Referrals: No Primary/Family,Physician [Primary Care Provider] - In 1 week Problem List Clinical Impression: Scalp contusion Patient/Caregiver Discharge Instructions Discharge Activity: activity as tolerated Education Materials: ED Scalp Contusion, ED Head Injury (Adult) Additional Instructions: Discharge Instructions from Dr. Fairbanks printed for you: 1. Fortunately, there is no very serious injury. Such as brain injury or broken neck or other broken bone or internal organ injury. 2. Apply ice (to your scalp contusion) for 20 minutes every 2-3 hours today and tomorrow. 3. Tylenol as needed. 4. See a private doctor on 04/21/2025 if not completely better. 5. Seek immediate medical care with severe and persistent headache, persistent vomiting, being extremely drowsy when you should be completely alert and awake, or with any concerns. Print Language: Faroese Stand Alone Forms: Lillian Award Info., Patient Portal Info Letter
[2025-04-19 19:01] LABS: Basophils # (Auto) 0.1 Thou/mm3 (0.0-0.2); Basophils % (Auto) 1 % (0-2.5); Eosinophils # (Auto) 0.1 Thou/mm3 (0.0-0.5); Eosinophils % (Auto) 2 % (0-10); Hematocrit 28.9 % (36.0-46.0); Hemoglobin 9.4 g/dL (12.0-16.0); Immature Granulocytes % (Auto) 0 % (0-0); Immature Granulocytes Auto 0.03 Thou/mm3 (0.00-0.00); Lymphocytes # (Auto) 0.9 Thou/mm3 (1.0-4.8); Lymphocytes % (Auto) 12 % (10-50); Mean Corpuscular HGB Conc 32.5 g/dl (31.0-37.0); Mean Corpuscular Hemoglobin 29.4 pg (25.0-35.0); Mean Corpuscular Volume 90 fL (80-100); Monocytes # (Auto) 0.6 Thou/mm3 (0.0-0.8); Monocytes % (Auto) 8 % (0-12); Neutrophils # (Auto) 5.4 Thou/mm3 (1.8-7.7); Neutrophils % (Auto) 76 % (37-80); Nucleated Red Blood Cell % 0 /100 WBC (0); Platelet Count 301 Thou/mm3 (140-440); RDW Standard Deviation 47.7 fL (36.4-46.3); White Blood Count 7.1 Thou/mm3 (3.6-11.0)
[2025-04-19 19:09] VITALS: BP 160/59; PULSE 62; RESP 16; TEMP 37; O2SAT 99
[2025-04-19 19:19] LABS: Anion Gap 8 (7-16); BUN/Creatinine Ratio 35 Ratio (12-20); Blood Urea Nitrogen 53 mg/dL (9-23); Calcium 9.4 mg/dL (8.3-10.6); Carbon Dioxide 29.4 mMol/L (20.0-31.0); Chloride 100 mMol/L (98-107); Creatinine (Component) 1.5 mg/dL (0.6-1.3); Estimated Creatinine Clearance 25.6 mL/min (>60); Glucose 210 mg/dL (74-106); Magnesium 2.2 mg/dL (1.6-2.6); Osmolality,Calculated 294 (275-295); Potassium 3.8 mMol/L (3.4-5.1); Sodium 137 mMol/L (136-145); eGFR 34 See Note
[2025-04-19 19:26] LABS: INR 1.1 (0.9-1.3); Partial Thromboplastin Time 31.3 Seconds (22.0-36.0)
[2025-04-19 20:20] VITALS: PULSE 75; RESP 14; TEMP 37; O2SAT 96
== END 2025-04-19 20:21 | disposition home or self-care (01) ==
PROVIDERS: Emergency Provider Emergency Medicine
DX: S00.03XA Contusion of scalp, initial encounter (principal); W18.39XA Other fall on same level, initial encounter; S19.9XXA Unspecified injury of neck, initial encounter; E11.42 Type 2 diabetes mellitus with diabetic polyneuropathy; E11.51 Type 2 diabetes mellitus with diabetic peripheral angiopathy without gangrene; I10 Essential (primary) hypertension; R07.9 Chest pain, unspecified
CPT/HCPCS: 36415; 70450; 71045; 72125; 80048; 83735; 85025; 85610; 85730; 99284

== ENCOUNTER → 2025-05-14 | Outpatient (CLI) | payer MEDICARE, MEDICAID, SELFPAY | END | disposition home or self-care (01) | LOC: SWHD 14:43 | PROVIDERS: PCP Internal Medicine; Referring Provider Internal Medicine; Visit Provider Student in an Organized Health Care Education/Training Program | DX: I87.312 Chronic venous hypertension (idiopathic) with ulcer of left lower extremity (principal); L97.822 Non-pressure chronic ulcer of other part of left lower leg with fat layer exposed; D64.9 Anemia, unspecified; E11.40 Type 2 diabetes mellitus with diabetic neuropathy, unspecified; I82.409 Acute embolism and thrombosis of unspecified deep veins of unspecified lower extremity; Z79.84 Long term (current) use of oral hypoglycemic drugs; Z79.4 Long term (current) use of insulin | CPT/HCPCS: 17250 ==

== ENCOUNTER → 2025-05-15 | Outpatient (CLI) | payer MEDICARE, MEDICAID, SELFPAY | END | disposition home or self-care (01) | PROVIDERS: Referring Provider Student in an Organized Health Care Education/Training Program; Visit Provider Student in an Organized Health Care Education/Training Program | DX: E11.621 Type 2 diabetes mellitus with foot ulcer (principal) | CPT/HCPCS: 87070; 87075; 87077; 87186; 87205 ==

== ENCOUNTER → 2025-05-21 | Outpatient (CLI) | payer MEDICARE, MEDICAID, SELFPAY ==
--- NOTE | 2025-05-21 13:26 | XR_ITS ---
Examination: Shoulder,right, 3 views Technique: Shoulder AP internal rotation, AP external rotation, Y view shoulder, 3 views Exam date and time :May 21, 2025 1339 hours INDICATIONS: Patient fell one month ago with injury to elbow, shoulder pain. FINDINGS: Severe osteopenia No shoulder fracture. No shoulder dislocation IMPRESSION: No shoulder fracture or dislocation
== END | disposition home or self-care (01) ==
PROVIDERS: PCP Internal Medicine; Referring Provider Internal Medicine; Visit Provider Internal Medicine
DX: S59.901A Unspecified injury of right elbow, initial encounter (principal); W19.XXXA Unspecified fall, initial encounter
CPT/HCPCS: 73030

== ENCOUNTER → 2025-06-18 | Outpatient (CLI) | payer MEDICARE, MEDICAID, SELFPAY | END | disposition home or self-care (01) | LOC: SWHD 13:33 | PROVIDERS: PCP Internal Medicine; Referring Provider Internal Medicine; Visit Provider Student in an Organized Health Care Education/Training Program | DX: I87.312 Chronic venous hypertension (idiopathic) with ulcer of left lower extremity (principal); L97.825 Non-pressure chronic ulcer of other part of left lower leg with muscle involvement without evidence of necrosis; D64.9 Anemia, unspecified; E11.40 Type 2 diabetes mellitus with diabetic neuropathy, unspecified; I82.409 Acute embolism and thrombosis of unspecified deep veins of unspecified lower extremity; Z79.84 Long term (current) use of oral hypoglycemic drugs; Z79.4 Long term (current) use of insulin | CPT/HCPCS: 11042; A9270 ==

== ENCOUNTER → 2025-07-14 | Outpatient (CLI) | payer MEDICARE, MEDICAID, SELFPAY ==
--- NOTE | 2025-07-14 13:53 | XR_ITS ---
Examination: Tibia-Fibula, left , 2 views Technique: Tibia-fibula AP lateral 2 views Date and time of exam: July 14, 2025 1436 hours INDICATIONS: Nonhealing left lower leg ulcer open wound 7 years. FINDINGS: Severe osteopenia Extensive soft tissue calcification Bone detail is poor because of the calcification but there does appear to be erosion of the cortex and sclerosis of the mid shaft of the tibia IMPRESSION: Chronic osteomyelitis midshaft of the tibia Consider MRI lower leg without contrast follow-up
== END | disposition home or self-care (01) ==
PROVIDERS: PCP Internal Medicine; Referring Provider Student in an Organized Health Care Education/Training Program; Visit Provider Student in an Organized Health Care Education/Training Program
DX: M86.662 Other chronic osteomyelitis, left tibia and fibula (principal)
CPT/HCPCS: 73590

== ENCOUNTER → 2025-07-16 | Outpatient (CLI) | payer MEDICARE, MEDICAID, SELFPAY | END | disposition home or self-care (01) | PROVIDERS: PCP Internal Medicine; Referring Provider Internal Medicine; Visit Provider Student in an Organized Health Care Education/Training Program | DX: I87.312 Chronic venous hypertension (idiopathic) with ulcer of left lower extremity (principal); L97.822 Non-pressure chronic ulcer of other part of left lower leg with fat layer exposed; D64.9 Anemia, unspecified; E11.40 Type 2 diabetes mellitus with diabetic neuropathy, unspecified; I82.409 Acute embolism and thrombosis of unspecified deep veins of unspecified lower extremity; Z79.84 Long term (current) use of oral hypoglycemic drugs; Z79.4 Long term (current) use of insulin | CPT/HCPCS: 11042; A9270 ==

== ENCOUNTER → 2025-07-17 | Outpatient (CLI) | payer MEDICARE, MEDICAID, SELFPAY ==
[2025-07-28 17:53] LABS: Stone Analysis Source STONE
[2025-07-29 07:09] LABS: Stone Analysis Weight 0.037 g
== END | disposition home or self-care (01) ==
LOC: SLDO 15:03
PROVIDERS: Referring Provider Student in an Organized Health Care Education/Training Program; Visit Provider Student in an Organized Health Care Education/Training Program
DX: M86.462 Chronic osteomyelitis with draining sinus, left tibia and fibula (principal); E11.622 Type 2 diabetes mellitus with other skin ulcer
CPT/HCPCS: 82365; 87070; 87075; 87077; 87186; 87205

== ENCOUNTER → 2025-07-23 | Outpatient (CLI) | payer MEDICARE, MEDICAID, SELFPAY ==
[2025-07-23 14:21] LABS: Collection Type, Urine Clean Catch
[2025-07-23 14:41] LABS: Basophils # (Auto) 0.1 Thou/mm3 (0.0-0.2); Basophils % (Auto) 1 % (0-2.5); Eosinophils # (Auto) 0.3 Thou/mm3 (0.0-0.5); Eosinophils % (Auto) 4 % (0-10); Hematocrit 30.6 % (36.0-46.0); Hemoglobin 9.5 g/dL (12.0-16.0); Immature Granulocytes Auto 0.04 Thou/mm3 (0.00-0.00); Lymphocytes # (Auto) 1.0 Thou/mm3 (1.0-4.8); Lymphocytes % (Auto) 15 % (10-50); Mean Corpuscular HGB Conc 31.0 g/dl (31.0-37.0); Mean Corpuscular Hemoglobin 29.4 pg (25.0-35.0); Mean Corpuscular Volume 95 fL (80-100); Monocytes # (Auto) 0.5 Thou/mm3 (0.0-0.8); Monocytes % (Auto) 8 % (0-12); Neutrophils # (Auto) 4.8 Thou/mm3 (1.8-7.7); Neutrophils % (Auto) 72 % (37-80); Nucleated Red Blood Cell # 0.00 Thou/mm3 (0.00-0.00); Nucleated Red Blood Cell % 0 /100 WBC (0); Platelet Count 239 Thou/mm3 (140-440); RDW Standard Deviation 49.2 fL (36.4-46.3); Red Blood Count 3.23 Miln/mm3 (4.00-5.20); White Blood Count 6.7 Thou/mm3 (3.6-11.0)
[2025-07-23 14:51] LABS: Glucose Estimated Average 171 mg/dL (80-131); Hemoglobin A1C 7.6 % Hgb (4.8-6.0)
[2025-07-23 14:53] LABS: Parathyroid Hormone Intact 57.7 pg/ml (18.5-88.0)
[2025-07-23 14:53] LABS: Bacteria,Urine Rare; Bilirubin,Urine Negative (Negative); Blood,Urine Negative (Negative); Color,Urine Lt-Yellow (Lt Yel-Yel); Culture Indicated,Urine Not Indicated; Glucose, Urine Negative (Negative); Ketones,Urine Negative (Negative); Leukocyte Esterase,Urine Positive (Negative); Nitrite,Urine Negative (Negative); PH,Urine 5.5 (5.0-7.0); Protein,Urine Negative (Neg - Trace); RBC,Urine 8 /hpf (0-3); Specific Gravity,Urine 1.011 (1.001-1.035); Squamous Epithelial Cell,Urine 16 /hpf (0-5); Urobilinogen,Urine Negative mg/dL (0.0-1.0); WBC,Urine 9 /hpf (0-5)
[2025-07-23 14:57] LABS: Creatinine MALB Rnd Ur 59 mg/dL (30-125); Microalbumin Creat Ratio 56 mg/gCrea (<30); Microalbumin, Random Urine 33 mg/L (0-300)
[2025-07-23 14:57] LABS: Alanine Aminotransferase 16 U/L (10-49); Albumin, Serum 3.6 gm/dL (3.4-4.8); Alkaline Phosphatase 144 U/L (46-116); Anion Gap 10 (7-16); Aspartate Amino Transferase 31 U/L (0-34); BUN/Creatinine Ratio 24 Ratio (12-20); Bilirubin,Direct 0.1 mg/dL (0.0-0.3); Bilirubin,Total 0.4 mg/dL (0.3-1.2); Blood Urea Nitrogen 33 mg/dL (9-23); Calcium 9.2 mg/dL (8.3-10.6); Carbon Dioxide 28.7 mMol/L (20.0-31.0); Cardiac Risk Estimate 3.5 RATIO (3.7-5.6); Chloride 103 mMol/L (98-107); Cholesterol 120 mg/dL (132-200); Creatinine (Component) 1.4 mg/dL (0.6-1.3); Glucose 173 mg/dL (74-106); HDL Cholesterol 34 mg/dL (40-60); LDL Cholesterol,Calculated 68 mg/dL (0-130); Osmolality,Calculated 294 (275-295); Phosphorous 3.7 mg/dL (2.4-5.1); Potassium 4.3 mMol/L (3.4-5.1); Sodium 142 mMol/L (136-145); Thyroid Stimulating Hormone 1.85 uIU/mL (0.55-4.78); Total Protein 7.0 gm/dL (5.7-8.2); Triglycerides 88 mg/dL (30-150); Uric Acid 8.4 mg/dL (3.1-7.8); eGFR 36 See Note
[2025-07-23 14:58] LABS: Vitamin B12 787 pg/mL (211-911); Vitamin D 25 Hydroxy Total 57.6 ng/mL (7.3-40.2)
[2025-07-23 15:00] LABS: Clarity,Urine Hazy (Clear/Hazy)
== END | disposition home or self-care (01) ==
LOC: COPL 13:36
PROVIDERS: PCP Internal Medicine; Referring Provider Internal Medicine; Visit Provider Internal Medicine
DX: I12.9 Hypertensive chronic kidney disease with stage 1 through stage 4 chronic kidney disease, or unspecified chronic kidney disease (principal); E11.22 Type 2 diabetes mellitus with diabetic chronic kidney disease; N18.30 Chronic kidney disease, stage 3 unspecified; E03.9 Hypothyroidism, unspecified; D51.9 Vitamin B12 deficiency anemia, unspecified; E55.9 Vitamin D deficiency, unspecified
CPT/HCPCS: 36415; 80048; 80061; 80076; 81001; 82043; 82306; 82570; 82607; 83036; 83970; 84100; 84443; 84550; 85025

== ENCOUNTER → 2025-08-05 | Outpatient (CLI) | payer MEDICARE, MEDICAID, SELFPAY ==
--- NOTE | 2025-08-05 12:15 | XR_ITS ---
Examination: MRI left lower leg, without contrast Date and time of exam: August 05, 2025, 1359 hours INDICATIONS: Swelling numbness discoloration lower extremity with paresthesias 7 years, nonhealing open wound in the lateral distal left leg Technique: Multiple axial sagittal and coronal images of the left lower extremity without intravenous contrast have been obtained with the Siemens high-resolution 1.5 Bhargavi MRI scanner. Images obtained include T2-weighted fat-suppressed sagittal sections, TR 3500, TE 46, T2 weighted coronal fat suppressed images, TR 3050, TE 84, T2-weighted transverse fat suppressed images, TR 3260, TE 63, proton density transverse images, TR 4720 TE 46, and T1 weighted coronal images, TR 560, TE 13. Findings: Images are degraded by patient motion Cortex of the tibia fibula intact Severe atrophy of the patient's muscles both flexor and extensor No soft tissue abscess Diffuse edema in the subcutaneous fatty tissue IMPRESSION: Severe muscle atrophy Diffuse cellulitis in the subcutaneous soft tissue left lower extremity Negative for osteomyelitis Negative for soft tissue abscess
== END | disposition home or self-care (01) ==
PROVIDERS: PCP Student in an Organized Health Care Education/Training Program; Referring Provider Student in an Organized Health Care Education/Training Program; Visit Provider Student in an Organized Health Care Education/Training Program
DX: M62.58 Muscle wasting and atrophy, not elsewhere classified, other site (principal); L03.116 Cellulitis of left lower limb
CPT/HCPCS: 73718

== ENCOUNTER → 2025-08-13 | Outpatient (CLI) | payer MEDICARE, MEDICAID, SELFPAY | END | disposition home or self-care (01) | LOC: SWHD 13:38 | PROVIDERS: PCP Internal Medicine; Referring Provider Internal Medicine; Visit Provider Student in an Organized Health Care Education/Training Program | DX: I87.312 Chronic venous hypertension (idiopathic) with ulcer of left lower extremity (principal); L97.822 Non-pressure chronic ulcer of other part of left lower leg with fat layer exposed; D64.9 Anemia, unspecified; E11.40 Type 2 diabetes mellitus with diabetic neuropathy, unspecified; I82.409 Acute embolism and thrombosis of unspecified deep veins of unspecified lower extremity; Z79.84 Long term (current) use of oral hypoglycemic drugs; Z79.4 Long term (current) use of insulin | CPT/HCPCS: 97597 ==

== ENCOUNTER → 2025-08-14 | Outpatient (CLI) | payer MEDICARE, MEDICAID, SELFPAY | END | disposition home or self-care (01) | LOC: SLDO 14:42 | PROVIDERS: PCP Student in an Organized Health Care Education/Training Program; Referring Provider Student in an Organized Health Care Education/Training Program; Visit Provider Student in an Organized Health Care Education/Training Program | DX: E11.622 Type 2 diabetes mellitus with other skin ulcer (principal); M86.462 Chronic osteomyelitis with draining sinus, left tibia and fibula | CPT/HCPCS: 87070; 87075; 87077; 87186; 87205 ==

== ENCOUNTER → 2025-09-01 | Outpatient (CLI) | payer MEDICARE, MEDICAID, SELFPAY ==
--- NOTE | 2025-09-01 14:30 | XR_ITS ---
Examination: Screening digital mammography, bilateral Computer aided detection 3-D breast Tomosynthesis, bilateral Date and time of exam: 09/01/2025, 2:08 p.m. Comparisons: August 26, 2024 Indications: Screening Technique: Nonmagnified MLO, CC views of the breasts to been obtained, reconstructed from 3-D Tomosynthesis images. R2 computer aided detection program utilized for evaluation of suspicious masses and/or abnormal calcifications. 3-D Tomosynthesis images obtained. Technologist: Findings: There are scattered areas of fibroglandular density. No evidence of abnormal masses or suspicious calcifications. Stable benign vascular calcifications. Impression: BI-RADS category 2: Benign findings Recommend 1 year follow-up mammogram
== END | disposition home or self-care (01) ==
LOC: CDIM 13:56
PROVIDERS: Referring Provider Internal Medicine; Visit Provider Internal Medicine
DX: Z12.31 Encounter for screening mammogram for malignant neoplasm of breast (principal); R92.323 Mammographic fibroglandular density, bilateral breasts; R92.1 Mammographic calcification found on diagnostic imaging of breast
CPT/HCPCS: 77063; 77067

== ENCOUNTER → 2025-09-03 | Outpatient (CLI) | payer MEDICARE, MEDICAID, SELFPAY | END | disposition home or self-care (01) | LOC: SWHD 13:30 | PROVIDERS: PCP Internal Medicine; Referring Provider Internal Medicine; Visit Provider Student in an Organized Health Care Education/Training Program | DX: I87.312 Chronic venous hypertension (idiopathic) with ulcer of left lower extremity (principal); L97.822 Non-pressure chronic ulcer of other part of left lower leg with fat layer exposed; D64.9 Anemia, unspecified; E11.40 Type 2 diabetes mellitus with diabetic neuropathy, unspecified; I82.409 Acute embolism and thrombosis of unspecified deep veins of unspecified lower extremity; Z79.4 Long term (current) use of insulin; Z79.84 Long term (current) use of oral hypoglycemic drugs | CPT/HCPCS: 11042; A9270 ==

== ENCOUNTER → 2025-10-01 | Outpatient (CLI) | payer MEDICARE, SELFPAY | END | disposition home or self-care (01) | PROVIDERS: PCP Internal Medicine; Referring Provider Internal Medicine; Visit Provider Student in an Organized Health Care Education/Training Program | DX: I87.312 Chronic venous hypertension (idiopathic) with ulcer of left lower extremity (principal); L97.822 Non-pressure chronic ulcer of other part of left lower leg with fat layer exposed; D64.9 Anemia, unspecified; E11.40 Type 2 diabetes mellitus with diabetic neuropathy, unspecified; I82.409 Acute embolism and thrombosis of unspecified deep veins of unspecified lower extremity; Z79.4 Long term (current) use of insulin; Z79.84 Long term (current) use of oral hypoglycemic drugs | CPT/HCPCS: 11042; 11045; A9270 ==

== ENCOUNTER → 2025-10-01 | Outpatient (CLI) | payer MEDICARE, MEDICAID, SELFPAY ==
[2025-10-01 13:56] LABS: Basophils # (Auto) 0.1 Thou/mm3 (0.0-0.2); Basophils % (Auto) 1 % (0-2.5); Eosinophils # (Auto) 0.4 Thou/mm3 (0.0-0.5); Eosinophils % (Auto) 5 % (0-10); Hematocrit 34.4 % (36.0-46.0); Hemoglobin 10.9 g/dL (12.0-16.0); Immature Granulocytes Auto 0.03 Thou/mm3 (0.00-0.00); Lymphocytes # (Auto) 1.2 Thou/mm3 (1.0-4.8); Lymphocytes % (Auto) 14 % (10-50); Mean Corpuscular HGB Conc 31.7 g/dl (31.0-37.0); Mean Corpuscular Hemoglobin 31.1 pg (25.0-35.0); Mean Corpuscular Volume 98 fL (80-100); Monocytes # (Auto) 0.6 Thou/mm3 (0.0-0.8); Monocytes % (Auto) 7 % (0-12); Neutrophils # (Auto) 6.3 Thou/mm3 (1.8-7.7); Neutrophils % (Auto) 73 % (37-80); Nucleated Red Blood Cell # 0.00 Thou/mm3 (0.00-0.00); Nucleated Red Blood Cell % 0 /100 WBC (0); Platelet Count 201 Thou/mm3 (140-440); RDW Standard Deviation 52.8 fL (36.4-46.3); Red Blood Count 3.51 Miln/mm3 (4.00-5.20); White Blood Count 8.6 Thou/mm3 (3.6-11.0)
[2025-10-01 14:05] LABS: Albumin, Serum 4.3 gm/dL (3.4-4.8); Anion Gap 10 (7-16); BUN/Creatinine Ratio 26 Ratio (12-20); Blood Urea Nitrogen 36 mg/dL (9-23); Calcium 9.6 mg/dL (8.3-10.6); Calcium (Corrected) 9.6 mg/dL (8.5-10.1); Carbon Dioxide 28.3 mMol/L (20.0-31.0); Chloride 106 mMol/L (98-107); Creatinine (Component) 1.4 mg/dL (0.6-1.3); Glucose 130 mg/dL (74-106); Osmolality,Calculated 297 (275-295); Phosphorous 4.3 mg/dL (2.4-5.1); Potassium 4.4 mMol/L (3.4-5.1); Sodium 144 mMol/L (136-145); eGFR 36 See Note
== END | disposition home or self-care (01) ==
PROVIDERS: PCP Internal Medicine; Referring Provider Internal Medicine; Visit Provider Internal Medicine
DX: I12.9 Hypertensive chronic kidney disease with stage 1 through stage 4 chronic kidney disease, or unspecified chronic kidney disease (principal); N18.30 Chronic kidney disease, stage 3 unspecified
CPT/HCPCS: 36415; 80069; 85025